=== PATIENT | male | born 1955 | race Caucasian/White ===

== ENCOUNTER 2016-08-13 05:58 | Inpatient (IN) | payer BC ==
[2016-08-10 13:58] LABS: Basophils # (auto) 0 uL; Basophils % (auto) 0.6 % (0.0-2.0); Eosinophils # (auto) 0.3 uL; Eosinophils % (auto) 3.6 % (0.0-7.0); Hematocrit 40.9 % (41.0-53.0); Hemoglobin 13.3 g/dL (13.5-17.5); Lymphocytes # (auto) 1.8 uL; Lymphocytes % (auto) 23.4 % (10.0-50.0); Mean Corpuscular Hgb Conc. 32.4 g/dL (32.0-36.0); Mean Corpuscular Volume 89.4 fL (80.0-100.0); Mean Platelet Volume 10.4 fL (7.4-10.4); Monocytes # (auto) 0.5 uL; Monocytes % (auto) 6.9 % (0.0-12.0); Neutrophils % (auto) 65.5 % (37.0-80.0); Platelet Count (auto) 251 10^3/uL (140-450); Red Cell Distribution Width 15.1 % (11.6-16.0); White Blood Cell 7.6 10^3/uL (4.4-10.8)
[2016-08-10 14:14] LABS: INR 0.93 (0.9-1.15); Partial Thromboplastin Time 26.3 sec (22.64-33.71)
[2016-08-10 14:24] LABS: Albumin 3.4 g/dL (3.4-5.0); BUN/Creatinine Ratio 14.2; Bilirubin, Total 0.4 mg/dL (0.2-1.0); Calcium 9.6 mg/dL (8.5-10.1); Potassium 4.6 mmol/L (3.5-5.1); Total Protein 7.8 g/dL (6.4-8.2); Urine Bilirubin Negative (Negative); Urine Blood TRACE /uL (Negative); Urine Color Yellow (Yellow); Urine Glucose Normal (Normal); Urine Ketone Negative (Negative); Urine Nitrite Negative (Negative); Urine RBC 3 /hpf (0 - 3); Urine Urobilinogen Normal (Negative); Urine pH 5.5 (5.0-8.0)
[~2016-08-13] VITALS: Ht 175.3 cm; Wt 104.4 kg
[~2016-08-13 05:58] MED LIST: AMLO5TAB2 PO; GLIP-115 PO
[2016-08-13] MEDS ORDERED: SUCCINYLCHOLINE CHLORIDE 20 MG/ML 10ML VIAL IV ONE (06:38)
[2016-08-13] MEDS ORDERED: ceFAZolin 1GM/50ML D5W 50 ML IV ONE (06:42)
[2016-08-13] MEDS ORDERED: ONDANSETRON HCL 4 MG/2 ML VIAL ONE (06:45)
[2016-08-13] MEDS ORDERED: MIDAZOLAM HCL 1MG/1ML-2 ML VIAL ONE (06:45)
[2016-08-13] MEDS ORDERED: fentaNYL CITRATE 100 MCG/2 ML VL ONE (06:45)
[2016-08-13] MEDS ORDERED: SODIUM CHLORIDE LOCK 20 ML ONE (06:45)
[2016-08-13] MEDS ORDERED: PROPOFOL 10 MG/ML 20 ML IV ONE (06:46)
[2016-08-13] MEDS ORDERED: IPRATROPIUM BROM 0.5 MG/2.5ML INH SOL NEB ONE (07:15)
[2016-08-13] MEDS ORDERED: ALBUTEROL SULF 2.5 MG/0.5ML(0.5%) NEB SOLN NEB ONE (07:15)
[2016-08-13] MEDS ORDERED: IPRATROPIUM BROM 0.5 MG/2.5ML INH SOL ONE (07:16)
[2016-08-13] MEDS ORDERED: ALBUTEROL MEDNEB 2.5 mg/3ml NEB ONE (07:16)
[2016-08-13] MEDS ORDERED: LIDOCAINE HCL 2 %PF INJ 10ML AMP IJ ONE (08:02)
[2016-08-13] MEDS ORDERED: MEPERIDINE HCL (50 MG/ML) 1 ML VIAL ONE (08:02)
[2016-08-13] MEDS: HYDROmorphone HCL 2 MG/ML VL ONE ×2 (08:42→08:52)
[2016-08-13] MEDS ORDERED: HYDROmorphone HCL 2 MG/ML VL IV PRN (08:45)
[2016-08-13] MEDS ORDERED: METOCLOPRAMIDE HCL 5MG/ml INJ 2ml VIAL IV ONE (08:45)
[2016-08-13] MEDS ORDERED: KETOROLAC TROMETH 30 MG/ML 1ML VIAL IV ONE (08:45)
[2016-08-13] MEDS ORDERED: ACCU-CHEK COMFORT CURVE STRIP VI ONE (08:45)
[2016-08-13] MEDS ORDERED: NITROGLYCERIN 0.4 MG SL TAB SL PRN (09:15)
[2016-08-13] MEDS ORDERED: MORPHINE SULF INJ 2 MG/ML SYRINGE 1ML IV PRN (09:15)
[2016-08-13 10:05] LABS: BUN/Creatinine Ratio 12.6; Calcium 9.2 mg/dL (8.5-10.1); Magnesium 2.1 mg/dL (1.6-2.6); Potassium 5.3 mmol/L (3.5-5.1)
[2016-08-13] MEDS ORDERED: DEXTROSE (50%) 50ML SYRG IV PRN (11:45)
[2016-08-13] MEDS: SODIUM CHLORIDE 0.9% 1,000 ML IV SCH ×2 (11:45→22:24)
[2016-08-13] MEDS: ACCU-CHEK COMFORT CURVE STRIP VI SCH ×3 (12:00→22:24)
[2016-08-13] MEDS ORDERED: amLODIPine BESYLATE 5 MG TAB PO ONE (12:15)
[2016-08-13] MEDS: InsuLIN REG 1unit/0.01ml Soln (100units/ml) SC SCH ×2 (13:30→17:19)
[2016-08-13] MEDS: SODIUM CHLOR 0.9% PF (SALINE LOCK) 10ML VIAL IV SCH ×2 (13:32→22:23)
[2016-08-13] MEDS ORDERED: ASPirin-EC 81 mg tab PO ONE (14:30)
[2016-08-13 17:00] VITALS: BP_SYST 136; BP_SYST 139; BP_DIAS 62; BP_DIAS 76
[2016-08-13 22:00] VITALS: BP 127/79
[2016-08-13] MEDS ORDERED: ATORVASTATIN 20 MG TAB PO SCH (22:00)
[2016-08-13] MEDS ORDERED: InsuLIN REG 1unit/0.01ml Soln (100units/ml) SC SCH (22:00)
[2016-08-13] MEDS: METOPROLOL TARTRATE 25 MG TAB PO SCH ×2 (22:00→22:50)
[2016-08-14] MEDS: SODIUM CHLOR 0.9% PF (SALINE LOCK) 10ML VIAL IV SCH ×2 (04:46→15:10)
[2016-08-14 05:00] VITALS: BP 116/64
[2016-08-14] MEDS: InsuLIN REG 1unit/0.01ml Soln (100units/ml) SC SCH ×3 (06:16→17:00)
[2016-08-14] MEDS: ACCU-CHEK COMFORT CURVE STRIP VI SCH ×3 (06:16→17:00)
[2016-08-14 06:36] LABS: Basophils # (auto) 0 uL; Eosinophils # (auto) 0 uL; Hematocrit 37.5 % (41.0-53.0); Hemoglobin 12.5 g/dL (13.5-17.5); Lymphocytes # (auto) 1.1 uL; Lymphocytes % (auto) 7.5 % (10.0-50.0); Mean Corpuscular Hemoglobin 29.1 pg (28.0-32.0); Mean Corpuscular Hgb Conc. 33.2 g/dL (32.0-36.0); Mean Corpuscular Volume 87.5 fL (80.0-100.0); Mean Platelet Volume 9.4 fL (7.4-10.4); Monocytes # (auto) 0.9 uL; Monocytes % (auto) 5.9 % (0.0-12.0); Neutrophils # (auto) 12.7 uL; Neutrophils % (auto) 86.6 % (37.0-80.0); Platelet Count (auto) 292 10^3/uL (140-450); White Blood Cell 14.6 10^3/uL (4.4-10.8)
[2016-08-14 07:17] LABS: BUN/Creatinine Ratio 14.4; Potassium 4.5 mmol/L (3.5-5.1)
[2016-08-14 08:00] VITALS: BP 150/79
[2016-08-14 09:00] VITALS: BP 150/79
[2016-08-14] MEDS ORDERED: amLODIPine BESYLATE 5 MG TAB PO SCH ×2 (10:00)
[2016-08-14] MEDS ORDERED: ASPirin-EC 81 mg tab PO SCH (10:00)
[2016-08-14 13:00] VITALS: BP 129/85
[2016-08-14] MEDS: SODIUM CHLORIDE 0.9% 1,000 ML IV SCH (15:09)
== END 2016-08-14 18:05 | disposition left against medical advice (07) | DRG 310 ==
LOC: SUR 05:58 → TELE-E-ADS 05:59 → TELE-EAST 12:18
PROVIDERS: ADMIT Urology; ATTEND Urology
PROC: 0TCB8ZZ Extirpation of Matter from Bladder, Via Natural or Artificial Opening Endoscopic (ICD-10-PCS; principal; 2016-08-13 07:35)
DX: I49.3 Ventricular premature depolarization (principal); N21.0 Calculus in bladder; E11.22 Type 2 diabetes mellitus with diabetic chronic kidney disease; I12.9 Hypertensive chronic kidney disease with stage 1 through stage 4 chronic kidney disease, or unspecified chronic kidney disease; J45.909 Unspecified asthma, uncomplicated; E87.5 Hyperkalemia; N13.9 Obstructive and reflux uropathy, unspecified; Z53.21 Procedure and treatment not carried out due to patient leaving prior to being seen by health care provider; N18.3 Chronic kidney disease, stage 3 (moderate); Z80.42 Family history of malignant neoplasm of prostate; Z82.49 Family history of ischemic heart disease and other diseases of the circulatory system; Z79.899 Other long term (current) drug therapy
CPT/HCPCS: 36415; 71010; 80048; 80053; 80061; 81001; 82962; 83036; 83735; 84132; 84484; 85025; 85610; 85730; 87086; 93005; 93306; 94640; J0330; J0690; J1815; J2250; J2405; J2704

== ENCOUNTER → 2019-09-06 | Emergency (ER) | payer BC ==
[~2019-09-06] VITALS: Ht 177.8 cm; Wt 113.4 kg
[~2019-09-06] MED LIST changes: +ALBUTEROL SULF 2.5 MG/0.5ML(0.5%) NEB SOLN NEB ONE; +AMLO5TAB15 PO; -AMLO5TAB2 PO; -GLIP-115 PO; +GLIP5TAB12 PO; +HYDROcodone-ACET 5/325MG TAB PO ONE; +IPRATROPIUM BROM 0.5 MG/2.5ML INH SOL NEB ONE; +cefTRIAXone SOD 1,000 MG VL IM ONE; +traMADol HCL 50 MG TAB PO ONE
[2019-09-06 04:18] LABS: Basophils # (auto) 0 10 ^3/uL (0-0.2); Basophils % (auto) 0.3 % (0.0-2.0); Eosinophils # (auto) 0 10 ^3/uL (0-0.8); Eosinophils % (auto) 0.3 % (0.0-7.0); Hematocrit 47.3 % (41.0-53.0); Hemoglobin 15.4 g/dL (13.5-17.5); Lymphocytes # (auto) 0.8 10 ^3/uL (0.4-5.4); Lymphocytes % (auto) 7.2 % (10.0-50.0); Mean Corpuscular Hemoglobin 29.2 pg (28.0-32.0); Mean Corpuscular Hgb Conc. 32.5 g/dL (32.0-36.0); Mean Corpuscular Volume 89.9 fL (80.0-100.0); Monocytes # (auto) 0.7 10 ^3/uL (0-1.3); Monocytes % (auto) 5.9 % (0.0-12.0); Neutrophils # (auto) 9.7 10 ^3/uL (1.6-8.6); Neutrophils % (auto) 86.3 % (37.0-80.0); Platelet Count (auto) 203 10^3/uL (140-450); Red Blood Cells 5.26 10^6/uL (4.5-5.90); Red Cell Distribution Width 14.5 % (11.8-14.3); White Blood Cell 11.3 10^3/uL (4.4-10.8)
[2019-09-06 04:24] LABS: Potassium 4.4 mmol/L (3.5-5.1)
[2019-09-06 04:27] VITALS: BP 135/72
[2019-09-06 04:33] LABS: Albumin 2.9 g/dL (3.4-5.0); BUN/Creatinine Ratio 11.6; Bilirubin, Total 0.3 mg/dL (0.2-1.0); Calcium 8.4 mg/dL (8.5-10.1)
[2019-09-06 04:45] LABS: INR 0.97 (0.9-1.15)
== END | disposition home or self-care (01) ==
LOC: ER 00:41
DX: L03.114 Cellulitis of left upper limb (principal)
CPT/HCPCS: 36415; 80053; 84550; 85025; 85379; 85610; 93971; 94640; 96372; 99284; J0696; J7644

== ENCOUNTER 2019-09-24 10:26 | Inpatient (IN) | payer BC ==
[~2019-09-24] VITALS: Ht 177.8 cm; Wt 109.3 kg
[~2019-09-24 10:26] MED LIST changes: -ALBUTEROL SULF 2.5 MG/0.5ML(0.5%) NEB SOLN NEB ONE; -HYDROcodone-ACET 5/325MG TAB PO ONE; -IPRATROPIUM BROM 0.5 MG/2.5ML INH SOL NEB ONE; -cefTRIAXone SOD 1,000 MG VL IM ONE; -traMADol HCL 50 MG TAB PO ONE
[2019-09-24] MEDS ORDERED: ACETAMINOPHEN/CODEINE#3 (300/30mg) TAB PO ONE (11:45)
[2019-09-24 12:55] LABS: Basophils # (auto) 0.1 10 ^3/uL (0-0.2); Basophils % (auto) 0.5 % (0.0-2.0); Eosinophils # (auto) 0.2 10 ^3/uL (0-0.8); Eosinophils % (auto) 2.4 % (0.0-7.0); Hematocrit 48.7 % (41.0-53.0); Lymphocytes # (auto) 1.4 10 ^3/uL (0.4-5.4); Lymphocytes % (auto) 14.3 % (10.0-50.0); Mean Corpuscular Hemoglobin 29.6 pg (28.0-32.0); Mean Corpuscular Hgb Conc. 32.8 g/dL (32.0-36.0); Mean Corpuscular Volume 90.4 fL (80.0-100.0); Monocytes # (auto) 0.7 10 ^3/uL (0-1.3); Monocytes % (auto) 6.9 % (0.0-12.0); Neutrophils # (auto) 7.4 10 ^3/uL (1.6-8.6); Neutrophils % (auto) 75.9 % (37.0-80.0); Platelet Count (auto) 276 10^3/uL (140-450); Red Blood Cells 5.39 10^6/uL (4.5-5.90); White Blood Cell 9.7 10^3/uL (4.4-10.8)
[2019-09-24 13:17] LABS: Albumin 3.4 g/dL (3.4-5.0); BUN/Creatinine Ratio 10.5; Calcium 9.3 mg/dL (8.5-10.1); Potassium 4.2 mmol/L (3.5-5.1)
[2019-09-24 13:19] LABS: Bilirubin, Total 0.3 mg/dL (0.2-1.0); Total Protein 8.1 g/dL (6.4-8.2)
[2019-09-24] MEDS ORDERED: ONDANSETRON HCL 4 MG/2 ML VIAL IV PRN (14:15)
[2019-09-24] MEDS ORDERED: MORPHINE SULF INJ 2 MG/ML SYRINGE 1ML IV PRN ×2 (14:15)
[2019-09-24] MEDS ORDERED: DEXTROSE (50%) 50ML SYRG IV PRN (14:15)
[2019-09-24] MEDS ORDERED: NITROGLYCERIN 0.4 MG SL TAB SL PRN (14:15)
[2019-09-24] MEDS ORDERED: HYDROcodone-ACET 7.5/325MG TAB PO PRN (14:15)
[2019-09-24] MEDS: SODIUM CHLORIDE 0.9% 1,000 ML IV SCH (14:54)
[2019-09-24] MEDS: InsuLIN REG 1unit/0.01ml Soln (100units/ml) SC SCH ×2 (17:00→22:00)
[2019-09-24] MEDS: ACCU-CHEK COMFORT CURVE STRIP VI SCH (17:16)
[2019-09-24 17:40] VITALS: BP 138/75
--- NOTE | 2019-09-24 17:40 | NUR ---
MS admit from ER TIFFANIE YUNG admitted to tele/MS after SBAR received. Patient oriented to ALYSSA PARHAM, primary RN, unit, room, bed, and unit policies regarding patient care and visiting hours. Patient weighed by bedscale and encouraged to call if they need something. All questions and concerns addressed, patient verbalized understanding.
[2019-09-24 22:00] VITALS: BP 127/78
[2019-09-25] MEDS: SODIUM CHLORIDE 0.9% 1,000 ML IV SCH (01:47)
[2019-09-25] MEDS: ACCU-CHEK COMFORT CURVE STRIP VI SCH ×5 (01:47→22:00)
[2019-09-25] MEDS ORDERED: GLIP10TA9 PO (03:13)
[2019-09-25] MEDS ORDERED: LOSA-69 PO (03:13)
--- NOTE | 2019-09-25 03:49 | NUR ---
Received report from Sonali Lanza.
[2019-09-25 05:00] VITALS: BP 126/79
[2019-09-25] MEDS: InsuLIN REG 1unit/0.01ml Soln (100units/ml) SC SCH ×4 (06:06→22:00)
--- NOTE | 2019-09-25 08:30 | NUR ---
Ortho at bedside MD Andrade at bedside, aware of patient's status including wrist pain. New orders received for Wrist MRI, states he will input orders and speak to dye lab technician. Will cont care
[2019-09-25 09:00] VITALS: BP 129/75
[2019-09-25] MEDS: amLODIPine BESYLATE 5 MG TAB PO SCH (09:54)
[2019-09-25] MEDS: glipiZIDE 5 MG TAB PO SCH (09:54)
[2019-09-25 13:00] VITALS: BP 138/87
--- NOTE | 2019-09-25 14:01 | NUR ---
Dr. Raymond field spoke to Hung at Dr. Andrade's office and requested call back from Dr. Andrade to notify regarding unable to do MRI and further orders?. Awaiting call back
--- NOTE | 2019-09-25 14:10 | NUR ---
Spoke to MD MD Dhaliwal aware of patient's status including patient request to speak to him. New orders received for Cardio consult for no blood flow to left radial veins. MD aware that patient MRI is unable to be done due to size and recommended ct with contrast. No further orders received. Cont care
--- NOTE | 2019-09-25 16:06 | NUR ---
Patient refused VS. States he does not need to get them done he states "all I need is an MRI that's all". Patient educated on need for VS and cont tx he verbalized understanding but continues to refuse at this time. No distress or sob noted
--- NOTE | 2019-09-25 19:55 | NUR ---
Opening Shift Note Assumed care of patient, AAOx4. No S/S of distress/SOB or pain. On room air and ambulatory. Bed in lowest locked position, side rails up x2, call light within reach. Instructed on POC and to call for assist PRN, will continue to monitor for changes Q1hr and PRN.
[2019-09-25 22:00] VITALS: BP 136/79
--- NOTE | 2019-09-26 06:04 | NUR ---
PATIENT REFUSED VITALS SIGN FOR 0600H, ERIC GARCIA AWARE..
[2019-09-26] MEDS: ACCU-CHEK COMFORT CURVE STRIP VI SCH ×2 (06:31→11:27)
[2019-09-26] MEDS: InsuLIN REG 1unit/0.01ml Soln (100units/ml) SC SCH ×2 (06:31→11:31)
[2019-09-26 08:00] VITALS: BP 129/75
--- NOTE | 2019-09-26 08:00 | NUR ---
ASSESSMENT NOTE PT IS ALERT ORIENTED X4, STANDING AT BED SIDE, STATED I MUST GO HOME TODAY, I DO NOT BELONG HERE> SUPPORT GIVEN TO PT, ASSESS PT LEFT HAND, ONE TO TWO PLUS EDEMA NOTED, WARM AND TENDER TO TOUCH, NO REDNESS NOTED, PT STATED ITS WORSE THAN YESTERDAY, MADE AWARE THAT DR KIM WILL BE HERE AND HAVE HIM TO LOOK AT IT
[2019-09-26 09:00] VITALS: BP_SYST 141; BP_SYST 98; BP_DIAS 48; BP_DIAS 91
[2019-09-26] MEDS: amLODIPine BESYLATE 5 MG TAB PO SCH (09:29)
[2019-09-26] MEDS: glipiZIDE 5 MG TAB PO SCH (09:30)
--- NOTE | 2019-09-26 09:45 | NUR ---
DR KIM AT BED SIDE PT IS ANXIOUS TO GO HOME, DR KIM INFORM PT THAT HE WILL GOING TO CALL DR IYER TO LET HIM KNOW THAT THE MRI WILL BE DONE OUTPATIENT, BECAUSE HE DID NOT FIT IN THE MRI MACHINE, AND ALSO WILL PAGE [employer] DEVELOPER TO DISCUSS THE TYPE OF ANTICOAGULANT APPROPRIATE FOR HER
--- NOTE | 2019-09-26 09:50 | NUR ---
ERICKSON RYAN NP
--- NOTE | 2019-09-26 11:00 | NUR ---
ERICKSON RYAN NP AGAIN
--- NOTE | 2019-09-26 11:50 | NUR ---
DR KIM MADE AWARE THAT SHELBY CALZADA PAGED TWICE, BUT NO RETURN, DR KIM WILL CONTACT DR MALIK DIRECTLY
--- NOTE | 2019-09-26 12:50 | NUR ---
DR MALIK AT BED SIDE ASSESSING PATIENT'S LEFT HAND, SAID ITS POSSIBLE INFLAMMATION, YOU NEED MRI OUT PATIENT SINCE HE DOES NOT FIT IN OUR MRI HERE, NO NEW ORDERS NOTED
[2019-09-26 13:58] VITALS: BP 141/91
--- NOTE | 2019-09-26 14:26 | NUR ---
Discharge instructions given as ordered. Encourage to follow up with PMD as instructed. All questions and concerns addressed. Patient verbalized understanding. Medication reconciliation form completed and copy given to patient. . IV removed with catheter intact, pressure dressing applied, Patient ambulated out to his car with all personal belongings, accompanied by staff . No distress noted at time of departure.
== END 2019-09-26 14:30 | disposition home or self-care (01) | DRG 638 ==
LOC: ER 10:26 → OVERFLOW 10:27 → CENTRAL 17:37
PROVIDERS: ADMIT Nurse Practitioner Acute Care; ATTEND Family Medicine
DX: E11.69 Type 2 diabetes mellitus with other specified complication (principal); L03.114 Cellulitis of left upper limb; I87.1 Compression of vein; I82.629 Acute embolism and thrombosis of deep veins of unspecified upper extremity; J45.909 Unspecified asthma, uncomplicated; I12.9 Hypertensive chronic kidney disease with stage 1 through stage 4 chronic kidney disease, or unspecified chronic kidney disease; N18.3 Chronic kidney disease, stage 3 (moderate); E11.22 Type 2 diabetes mellitus with diabetic chronic kidney disease; E78.5 Hyperlipidemia, unspecified; E66.9 Obesity, unspecified; Z79.84 Long term (current) use of oral hypoglycemic drugs; Z79.899 Other long term (current) drug therapy; Z68.34 Body mass index [BMI] 34.0-34.9, adult; Z79.4 Long term (current) use of insulin
CPT/HCPCS: 36415; 73200; 80053; 82550; 82962; 83036; 85025; 93971; G0378; J1815

== ENCOUNTER 2024-03-29 02:57 | Inpatient (IN) | payer BC, OTHER ==
[2024-03-29] VITALS (9 sets, daily range): BP systolic 137–147; BP diastolic 71–86; PULSE 75–102; RESP 16–20; TEMP 97–97.9; O2SAT 81–97
[~2024-03-29] VITALS: Ht 182.9 cm; Wt 105.5 kg
[~2024-03-29 02:57] MED LIST changes: +AMLO1TAB22 PO; -AMLO5TAB15 PO; +GLIP10TA9 PO; -GLIP5TAB12 PO; +GLIP5TAB21 PO; +LOSA-534 PO
--- NOTE | 2024-03-29 03:03 | ED.PDOC ---
History of Present Illness HPI Comments 68 y/o M, with a Hx of asthma, CKD, DM II, HLD, and HTN and a FMHX of CA and emphysema, is BIBA for left leg weakness and headache, today. Per EMS report, patient endorses intermittent onset of sudden left leg weakness that has caused him to fall multple times since 1600, yesterday. Patient, at time of assessment, admits to also having a mild headache. Patient endorses no recent stress, sick contact, travel, injuries, or substance use/exposure. Patient denies having any chest pain, shortness of breath, chills, or other associated symptoms or modifiers at this time. Patient's vitals were reported to have been stable and within normal limits on scene and en-route prior to arrival. Time Seen by MD: 02:50 Primary Care Provider: JADEN Reviewed Notes: Nurses Notes, Gang Miner Notes, Medications, Allergies Allergies: Coded Allergies: NO KNOWN ALLERGIES (Unverified , 08/10/16) Home Meds Reported Medications Losartan Potassium (Losartan Potassium) 50 Mg Tab, 50 MG PO DAILY for 30 Days, MG 09/25/19 Glipizide (Glipizide) 10 Mg Tab, 10 MG PO BID for 30 Days, MG 09/25/19 Amlodipine Besylate (Amlodipine Besylate) 5 Mg Tab, 5 MG PO DAILY for 30 Days, MG 08/10/16 Glipizide (Glipizide) 5 Mg Tab, 5 MG PO DAILY for 30 Days, MG 08/10/16 Information Source: Patient, Emergency Med Personnel Mode of Arrival: EMS Severity: Moderate Timing: Hours Duration: Intermittent Prehospital treatment: 12 Lead EKG, Manager Mall, None Past Medical History PAST MEDICAL HISTORY: Asthma, CKF, DM, High Lipids, HTN Surgical History: Denies all surgeries Family History Family History: No family hx of DM, No family hx of Heart tano, No family hx of HTN, No family hx ofKidney tano, No family hx of Lung tano, No family hx of Stroke, Family hx of Cancer, Family hx of lung tano (emphysema) Social History Smoker: Non-Smoker Alcohol: Denies ETOH Use Drugs: Denies Drug Use Lives In: Home Constitutional: denies: chills, diaphoresis, fatigue, fever, malaise, sweats, weakness, others EENTM: denies: blurred vision, double vision, ear bleeding, ear discharge, ear drainage, ear pain, ear ringing, eye pain, eye redness, hearing loss, mouth pain, mouth swelling, nasal discharge, nose bleeding, nose congestion, nose divya n, photophobia, tearing, throat pain, throat swelling, voice changes, others Respiratory: denies: cough, hemoptysis, orthopnea, SOB at rest, shortness of breath, SOB with excertion, stridor, wheezing, others Cardiovascular: denies: chest pain, dizzy spells, diaphoresis, Dyspnea on exertion, edema, irregular heart beat, left arm pain, lightheadedness, palpitations, PND, syncope, others Gastrointestinal: denies: abdomen distended, abdominal pain, blood streaked bowels, constipated, diarrhea, dysphagia, difficulty swallowing, hematemesis, melena, nausea, poor appetite, poor fluid intake, rectal bleeding, rectal pain, vomiting, others Genitourinary: denies: burning, dysuria, flank pain, frequency, hematuria, incontinence, penile discharge, penile sore, pain, testicle pain, testicle swelling, urgency, others Neurological: reports: headache, weakness (left leg ); denies: dizziness, fainting, left sided numbness, left sided weakness, numbness, paresthesia, pre- existing deficit, right sided numbness, right sided weakness, seizure, speech problems, tingling, tremors, others Musculoskeletal: denies: back pain, gout, joint pain, joint swelling, muscle pain, muscle stiffness, neck pain, others Integumetry: denies: bruises, change in color, change in hair/nails, dryness, laceration, lesions, lumps, rash, wounds, others Allergic/Immunocompromised: denies: Difficulty Healing, Frequent Infections, Hives, Itching, others Hematologic/Lymphatic: denies: anemia, blood clots, easy bleeding, easy bruising, swollen glands, others Endocrine: denies: excessive hunger, excessive sweating, excessive thirst, excessive urination, flushing, intolerance to cold, intolerance to heat, unexplained weight gain, unexplained weight loss, others Psychiatric: denies: anxiety, bipolar disorder, depression, hopeless, panic disorder, schizophrenia, sleepless, suicidal, others All Other Systems: Reviewed and Negative Physical Exam General Appearance: Moderate Distress HEENT: Normal ENT Inspection, Pharynx Normal, TMs Normal Neck: Full Range of Motion, Non-Tender, Normal, Normal Inspection Respiratory: Chest Non-Tender, Lungs Clear, No Accessory Muscle Use, No Respiratory Distress, Normal Breath Sounds Cardiovascular: No Edema, No JVD, No Murmur, No Gallop, Normal Peripheral Pulses, Regular Rate/Rhythm Breast Exam: Deferred Gastrointestinal: No Organomegaly, Non Tender, No Pulsatile Mass, Normal Bowel Sounds, Soft Genitalia: Deferred Pelvic: Deferred Rectal: Deferred Extremities: No calf tenderness, Normal capillary refill, No pedal edema Musculoskeletal : Apperance: Normal Neurologic: Alert, furnace converter II-XII nml as Tested, No Motor Deficits, Normal Mood, Other (The patient was drifting of the left lower extremity) Cerebellar Function: Unable to Test Reflexes: Normal Skin: Dry, Normal Color, Warm Lymphatic: No Adenopathy Was a procedure done? Was a procedure done?: No EKG EKG : Pulse Rate (adult): 70 [place]: Normal Cardiac Rhythm: NSR Block: None Hypertrophy: None ST: Normal Differential Dx Considerations may include: viral syndrome, electrolyte imbalance, CVA, TIA, musculoskeletal pain X-Ray, Labs, Meds, VS Vital Signs Date Time Temp Pulse Resp B/P (MAP) Pulse Ox O2 Delivery O2 Flow Rate FiO2 03/29/24 05:19 80 12 145/78 (100) 94 03/29/24 03:18 70 03/29/24 03:15 70 03/29/24 03:14 75 16 142/79 (100) 94 03/29/24 03:14 75 16 94 Room Air* 0 21 03/29/24 03:00 98.2 72 16 154/78 (103) 97 Lab Test 03/29/24 04:06 03/29/24 03:11 Range/Units Urine Color Light-yellow Yellow Urine Clarity Clear Clear Urine pH 6.0 5.0-9.0 Urine Specific [place] 1.014 1.001-1.035 Urine Protein 3+ H Negative Urine Ketones Negative Negative Urine Blood 1+ H Negative /uL Urine Nitrite Negative Negative Urine Bilirubin Negative Negative Urine Urobilinogen Normal Negative mg/dL Urine Leukocyte Esterase Negative Negative /uL Urine RBC 4 0 - 3 /hpf Urine WBC 3 0 - 3 /hpf Urine Squamous Epithelial Cells Few <5 /hpf Urine Bacteria None seen None Seen /hpf Urine Mucus Few None Seen Urine Glucose Trace Normal mg/dL Urine Opiates Screen Pending Urine Fentanyl Screen Pending Urine Barbiturates Screen Pending Urine Phencyclidine Screen Pending Urine Amphetamines Screen Pending Urine Benzodiazepines Screen Pending Urine Cocaine Screen Pending Urine Cannabinoids Screen Pending White Blood Count 13.9 H 4.4-10.8 10^3/uL Red Blood Count 5.23 4.5-5.90 10^6/uL Hemoglobin 15.4 13.5-17.5 g/dL Hematocrit 46.0 41.0-53.0 % Mean Corpuscular Volume 88.0 80.0-100.0 fL Mean Corpuscular Hemoglobin 29.4 28.0-32.0 pg Mean Corpuscular Hemoglobin Concent 33.4 32.0-36.0 g/dL Red Cell Distribution Width 15.6 H 11.8-14.3 % Platelet Count 207 140-450 10^3/uL Mean Platelet Volume 9.2 6.9-10.8 fL Neutrophils (%) (Auto) 85.6 H 37.0-80.0 % Lymphocytes (%) (Auto) 7.2 L 10.0-50.0 % Monocytes (%) (Auto) 6.3 0.0-12.0 % Eosinophils (%) (Auto) 0.5 0.0-7.0 % Basophils (%) (Auto) 0.4 0.0-2.0 % Neutrophils # (Auto) 11.9 H 1.6-8.6 10 ^3/uL Lymphocytes # (Auto) 1.0 0.4-5.4 10 ^3/uL Monocytes # (Auto) 0.9 0-1.3 10 ^3/uL Eosinophils # (Auto) 0.1 0-0.8 10 ^3/uL Basophils # (Auto) 0.1 0-0.2 10 ^3/uL Nucleated Red Blood Cells 0.0 % Prothrombin Time 10.4 9.3-11.8 sec Prothrombin Time INR 0.98 0.9-1.15 Activated Partial Thromboplast Time 23.8 L 24.5-34.5 SEC D-Dimer, Quantitative Pending Sodium Level Pending Potassium Level Pending Chloride Level Pending Carbon Dioxide Level Pending Anion Gap Pending Blood Urea Nitrogen Pending Creatinine Pending Glomerular Filtration Rate Calc Pending BUN/Creatinine Ratio Pending Serum Glucose Pending Calcium Level Pending Magnesium Level 2.0 1.6-2.6 mg/dL Total Bilirubin Pending Aspartate Amino Transferase (AST) Pending Alanine Aminotransferase (ALT) Pending Alkaline Phosphatase Pending B-Type Natriuretic Peptide Pending Total Protein Pending Albumin Pending Thyroid Stimulating Hormone (TSH) Pending Current Medications Medications (Trade) Dose Ordered Sig/Asim Route Start Time Stop Time Status Last Admin Aspirin 162 mg ONCE ONCE PO 03/29/24 04:45 03/29/24 04:46 DC 03/29/24 05:09 PROCEDURE(s): HWOCT - HEAD WITHOUT CONTRAST IMPRESSION: 1. Focal wedge-shaped hypodensity seen in the right parafalcine high parietal region with loss of adjacent ames-white matter interface. This may be acute ischemic etiology. Correlation with MRI diffusion weighted is suggested. 2. Focal gliotic area is seen in the right inferior cerebellum. This is most likely sequelae to old ischemic insult. 3. Age-related corticocerebral atrophy. PROCEDURE(s): CXRP - CHEST PORTABLE IMPRESSION: No significant abnormality is seen. We did speak with the neurologist and went over the CT scan as well as the physical exam The telemedicine neurologist was able to evaluate the patient. It was determined that most likely the patient did have a CVA The patient was given aspirin 162 mg by mouth They did order a CT scan angio of the head and neck and the Neurology will make further decisions after this The patient's CBC shows an elevated white blood cell count is 13.9 The urine test is negative The patient was being admitted at this time Images Reviewed?: Images reviewed and evaluated by me Time of 1ST Reevaluation: 03:20 Reevaluation 1ST: Unchanged Patient Education/Counseling: Diagnosis, Treatment, Prognosis Family Education/Counseling: No Family Present Departure 1 Departure Time of Disposition: 05:28 Impression: Primary Impression: CVA (cerebral vascular accident) Qualified Codes: I63.9 - Cerebral infarction, unspecified Disposition: ADMITTED INPATIENT Admit to: Tele Condition: Fair Critical Care Note Critical Care Time?: Yes (35 min-critical care time only) Stability Stability form required: Yes Unstable for transfer: Telemetry monitoring (Telemetry monitoring required), ED Physician Assesment (Clinical assesment) Heart Score Heart Score: Heart Score Response (Comments) Value History N/A 0 EKG N/A 0 Age N/A 0 Risk Factors N/A 0 Troponin N/A 0 Total 0 I personally scribed for ARSH MALIK MD ([email or web address]) on 03/29/24 at 03:03. Electronically submitted by Huseyin Gordon ([email or web address]). I personally scribed for ARSH MALIK MD ([email or web address]) on 03/29/24 at 03:18. Electronically submitted by Huseyin Gordon ([email or web address]). I personally scribed for ARSH MALIK MD ([email or web address]) on 03/29/24 at 04:36. Electronically submitted by Huseyin Gordon ([email or web address]). ARSH MALIK MD Mar 29, 2024 03:03
[2024-03-29 03:26] LABS: Basophils # (auto) 0.1 10 ^3/uL (0-0.2); Basophils % (auto) 0.4 % (0.0-2.0); Eosinophils # (auto) 0.1 10 ^3/uL (0-0.8); Eosinophils % (auto) 0.5 % (0.0-7.0); Hemoglobin 15.4 g/dL (13.5-17.5); Lymphocytes % (auto) 7.2 % (10.0-50.0); Mean Corpuscular Hemoglobin 29.4 pg (28.0-32.0); Mean Corpuscular Hgb Conc. 33.4 g/dL (32.0-36.0); Monocytes # (auto) 0.9 10 ^3/uL (0-1.3); Monocytes % (auto) 6.3 % (0.0-12.0); Neutrophils # (auto) 11.9 10 ^3/uL (1.6-8.6); Neutrophils % (auto) 85.6 % (37.0-80.0); Platelet Count (auto) 207 10^3/uL (140-450); Red Blood Cells 5.23 10^6/uL (4.5-5.90); Red Cell Distribution Width 15.6 % (11.8-14.3); White Blood Cell 13.9 10^3/uL (4.4-10.8)
[2024-03-29 03:34] LABS: Chloride 109 mmol/L (98-107); Potassium 4.7 mmol/L (3.5-5.1); Sodium 141 mmol/L (136-145)
[2024-03-29 03:35] LABS: Anion Gap 8 (5-15); Calcium 10.1 mg/dL (8.7-10.4); Carbon Dioxide 24 mmol/L (20-31)
[2024-03-29 03:40] LABS: Glucose 111 mg/dL (74-106)
[2024-03-29 03:41] LABS: BUN/Creatinine Ratio 9.1 (10.0-20.0); Blood Urea Nitrogen 19 mg/dL (9-23)
--- NOTE | 2024-03-29 04:17 | ECG ---
[facility] Test Date: 2024-03-29 Test Time: 03:15:34 Pat Name: TIFFANIE YUNG Department: ER Room: 0216T Gender: M Ibm Bpm Architect: AKIN : [id number] Requested By: ARSH MALIK Order Number: [id number] Reading MD: Griffin Mcallister Measurements Intervals [place] Rate: 70 P: -14 DC: 227 QRS: 88 QRSD: 100 T: 19 QT: 381 QTc: 412 Interpretive Statements Sinus rhythm Prolonged DC interval Borderline right axis deviation Electronically Signed On 03-30-2024 17:41:25 PST by Griffin Mcallister Please click the below link to view image of tracing.
--- NOTE | 2024-03-29 04:29 | DVH ---
Examination: CXRP CLINICAL INDICATION: weakness COMPARISON: None. TECHNIQUE: Frontal view of chest radiograph. FINDINGS: The lung parenchyma is clear. Hilar and mediastinal shadows show no obvious abnormality. Costophrenic angles clear. Cardiac shadow size is within normal limits. IMPRESSION: No significant abnormality is seen. Electronically Signed 03/29/2024 04:20 Mehnaz Tamayo
--- NOTE | 2024-03-29 04:29 | DVH ---
Examination: HWOCT CLINICAL INDICATION: weakness and headache COMPARISON: None. CONTRAST USED: None. TECHNIQUE: The examination was performed obtaining 5 mm slices without contrast. CT scan done accor ding to ALARA (As Low as Reasonably Achievable). Multiplanar reconstructions were obtained. FINDINGS: SUPRATENTORIAL BRAIN: Cerebral Hemispheres: There is no midline shift or mass effect, intra or extra-axial fluid collectio ns or hemorrhage. Focal wedge-shaped hypodensity seen in the right parafalcine high parietal region with loss of adjace nt ames-white matter interface. Focal gliotic area is seen in the right inferior cerebellum. Periventricular White Matter/Basal Ganglia: No abnormal areas of altered attenuation within the yin ventricular white matter or basal ganglia. POSTERIOR FOSSA: The brainstem is normal and the visualized cerebellar hemispheres are unremarkable. VENTRICULAR SYSTEM: There is mild generalized prominence of the ventricles, cisterns, sulci and sylv christy fissures noted. There is no evidence of hydrocephalus or transependymal flow of cerebrospinal fl uid. SKULL BASE AND PARASELLAR REGION: The skull base is normal with no parasellar masses or abnormalitie s identified. CALVARIUM AND SCALP REGION: No abnormality is seen. PARANASAL SINUSES: No significant inflammatory changes are identified in the paranasal sinuses. IMPRESSION: 1. Focal wedge-shaped hypodensity seen in the right parafalcine high parietal region with loss of ad jacent ames-white matter interface. This may be acute ischemic etiology. Correlation with MRI diff usion weighted is suggested. 2. Focal gliotic area is seen in the right inferior cerebellum. This is most likely sequelae to old ischemic insult. 3. Age-related corticocerebral atrophy. Electronically Signed 03/29/2024 04:19 Mehnaz Tamayo
[2024-03-29 04:34] LABS: Urine Bacteria None Seen /hpf (None Seen)
[2024-03-29 04:50] LABS: Urine Blood 1+ /uL (Negative); Urine Clarity Clear (Clear); Urine Color Light-Yellow (Yellow); Urine Mucus FEW (None Seen); Urine Protein, UAD 3+ (Negative); Urine Specific Gravity 1.014 (1.001-1.035); Urine Urobilinogen Normal (Negative); Urine WBC 3 /hpf (0 - 3)
[2024-03-29 04:59] LABS: INR 0.98 (0.9-1.15); Partial Thromboplastin Time 23.8 SEC (24.5-34.5); Prothrombin Time 10.4 sec (9.3-11.8)
[2024-03-29] MEDS: ASPirin 81 mg TAB PO ONE (05:09)
[2024-03-29] MEDS ORDERED: NITROGLYCERIN 0.4 MG SL TAB SL PRN (05:15)
[2024-03-29] MEDS ORDERED: ENOXAPARIN SOD 40 MG/0.4 ML SYRINGE SC SCH (05:15)
[2024-03-29] MEDS ORDERED: ONDANSETRON HCL 4 MG/2 ML VIAL IV PRN (05:15)
[2024-03-29] MEDS ORDERED: ACETAMINOPHEN 325 MG TAB PO PRN (05:15)
[2024-03-29] MEDS ORDERED: MORPHINE SULFATE INJ 2 MG/ml SYRG IV PRN ×2 (05:15)
[2024-03-29] MEDS: IOHEXOL 350 MG/ML 100ML IJ ONE (05:24)
--- NOTE | 2024-03-29 05:33 | BSKYNEURO ---
[facility] Note # Demographics Consult Type: Acute Stroke Level 2 (4.5-24 hrs) Patient Location: Emergency Room First Name: Eduardo Last Name: Brittany Date of : 1955 Age: 68 Gender: Male Facility: [facility] Time of Initial Page (): 03/29/2024, 04:38 Time of Return Call (): 03/29/2024, 04:38 # HPI History: 68 year old man with the history of hypertension hyperlipidemia and type 2 diabetes and possibly new diagnosis of atrial fibrillation around 4:00 p.m. yesterday developed some left leg weakness, numbness and in coordination # Scores Time of exam and NIHSS (): 03/29/2024, 04:41 Level of Consciousness 1a: [0] = Alert; keenly responsive LOC Questions 1b: [0] = Answers both questions correctly LOC Commands 1c: [0] = Performs both tasks correctly Best Gaze 2: [0] = Normal Visual 3: [0] = No visual loss Facial Palsy 4: [0] = Normal symmetrical movements Motor Arm Left 5a: [1] = Drift Motor Arm Right 5b: [0] = No drift Motor Leg Left 6a: [0] = No drift Motor Leg Right 6b: [0] = No drift Limb Ataxia 7: [1] = Present in one limb Sensory 8: [0] = Normal Best Language 9: [0] = No aphasia Dysarthria 10: [0] = Normal Extinction and Inattention 11: [0] = No abnormality NIHSS Total: 2 # PMH-FH-SH Past Medical History: - hypertension - hyperlipidemia - Diabetes Social History: - non-smoker - non-drinker - no drugs Medications: - antihypertensive - lipid lowering agent Allergies: - NKDA # Data Time Head CT personally read by me (): 03/29/2024, 05:[address]: - no bleed right parietal hypodensity # Assessment Impression: Suspect acute CVA- high right parietal region # Plan Thrombolytic/Intervention: NOT IV Thrombolysis or IA Intervention candidate Thrombolytic Exclusion: > 4.5 hours Target Blood Pressure: SBP 120-220 for 3-5 days Labs: - lipid panel - hemoglobin A1c - TSH Imaging: (urgency: STAT): - CT Angiogram Head and CT Angiogram Neck AND call back with results if abnormal Imaging: (urgency: routine): - MRI Brain without contrast Diagnostic Test: - echo with bubble study Therapy/Evaluation: - speech/swallow consultation - PT/OT evaluation Medication: - aspirin 81 mg PLUS clopidogrel (Plavix) 75 mg for 21 days, then monotherapy therafter - start statin with goal of LDL < 70 Other: - If patient has any neurological deterioration please call back immediately - I have discussed my recommendations with the referring provider - permissive hypertension Disposition: admit # Demographics First Name: Eduardo Last Name: [facility] Facility: [facility] Yes KENDALL LAUGHLIN Jr., MD Mar 29, 2024 05:33
[2024-03-29] MEDS: CLOPIDOGREL BISULFATE 75 MG TAB PO ONE (05:41)
[2024-03-29 05:42] LABS: Amphetamine Screen, Urine Neg (NEGATIVE); Barbiturate Scree,Urine Neg (NEGATIVE); Benzodiazephine Screen, Urine Neg (NEGATIVE); Cocaine Screen, Urine Neg (NEGATIVE)
[2024-03-29 05:43] LABS: Cannabinoid Screen, Urine Neg (NEGATIVE); Opiate Scree,Urine Neg (NEGATIVE); Phencyclidine Screen, Urine Neg (NEGATIVE)
[2024-03-29 05:44] LABS: Alanine Aminotransferase 24 U/L (7-40); Albumin 4.2 g/dL (3.2-4.8); Alkaline Phosphatase 88 U/L (46-116); Anion Gap 9 (5-15); Aspartate Aminotransferase 28 U/L (13-40); BUN/Creatinine Ratio 10.8 (10.0-20.0); Blood Urea Nitrogen 23 mg/dL (9-23); Calcium 10.2 mg/dL (8.7-10.4); Carbon Dioxide 24 mmol/L (20-31); Chloride 108 mmol/L (98-107); Glucose 111 mg/dL (74-106); Potassium 4.9 mmol/L (3.5-5.1); Sodium 141 mmol/L (136-145)
[2024-03-29 05:45] LABS: Bilirubin, Total 0.4 mg/dL (0.2-1.0); Total Protein 6.2 g/dL (5.7-8.2)
--- NOTE | 2024-03-29 05:57 | DVH ---
Procedure: CT ANGIO HEAD/Neck HISTORY: Possible CVA Comparison Study: CT scan of the head performed same date. Exam Date:03/29/2024 05:24 AM TECHNIQUE: CTA head without and with intravenous contrast. CTA neck with intravenous contrast. 3D gris W-locate postprocessing was performed and images were used for interpretation and reporting. Radiation Dose : CT Dose: CTDI volume is 68.5 mGy. Dose-length product is 1346.9 mGy*cm FINDINGS: CTA head: There is normal enhancement of the visualized internal carotid, anterior and middle cerebral arterie s. There are bilateral posterior communicating arteries. The vertebral, basilar, and posterior cere bral arteries are within normal limits. The visualized intracranial venous structures are better constance luated on CT scan of the head same date. CTA neck: The visualized thoracic aortic arch and proximal great vessels are unremarkable. The left common, int ernal and external carotid arteries are patent. Mild atherosclerotic calcifications in the left carot id bifurcation. The right common, internal and external carotid arteries are within normal limits. Th e cervical segments of the right and left vertebral arteries are within normal limits. The limited vi sualized lung apices are clear. The surrounding soft tissues and osseous structures are otherwise unr emarkable. The lung apices are clear. Thyroid unremarkable. IMPRESSION: 1. No evidence of significant intracranial stenosis, proximal occlusion or aneurysm. 2. No evidence of hemodynamically significant cervical stenosis or dissection. CAROTID STENOSIS REFERENCE Distal internal carotid artery diameter as the denominator for stenosis measurement: MILD = <50% stenosis. MODERATE = 50-69% stenosis. SEVERE = 70-89% stenosis. CRITICAL = 90-99% stenosis. OCCLUDED = 100% stenosis. All CT scans at this medical facility are performed using dose modulation techniques as appropriate t o a performed exam including the following: Automated exposure control was utilized; adjustment of th e MA and/or KV according to patient size; and use of iterative reconstruction technique.
[2024-03-29] MEDS: ATORVASTATIN 20 MG TAB PO ONE (06:39)
[2024-03-29 06:45] LABS: Triglycerides 228 mg/dL (< 150)
[2024-03-29 06:46] LABS: LDL Cholesterol 88 mg/dL (< 100)
[2024-03-29 06:47] LABS: Cholesterol 166 mg/dL (< 200); HDL Cholesterol 45 mg/dL (40-59)
--- NOTE | 2024-03-29 06:51 | DVHHPRES ---
History of Present Illness Resident Creating Document: ROXANA LARA Reason for Visit: Bilateral lower extremity weakness History of Present Illness 68-year-old male patient with past medical history of type 2 diabetes, hypertension, hyperlipidemia and chronic kidney disease who presented with complaints of bilateral lower extremity weakness and wobbling sensation that began after gardening. The symptoms started yesterday at approximately 4:00 p.m. after the onset of symptoms the patient took a nap but upon walking and attempting to use the bathroom he experienced a fall. He denies loss of consciousness during the event paramedics were called, and he was brought to the hospital he reports normal strength in right lower extremity and mild numbness in the left foot, but no loss of sensation or paralysis. He denies any preceding chest pain, palpitations, dizziness or visual changes. The patient mentions a prior diagnosis of a "leaking valve" by Dr. Caputo , newly diagnosed atrial fibrillation that was shown in the monitor worker. Current vital signs showed mildly elevated blood pressure 145/78 that we will keep because of the permissive hypertension in this scenario. Initial imaging included a CT of the head, which revealed a focal wedge-shaped hypodensity in the right parietal region with loss of the adjacent mtz-white matter interface, suggestive of an acute ischemic etiology. The patient has been on aspirin, clopidogrel and atorvastatin. No significant neurological deficits were noted except for the reported numbness in the left foot. The pain denies fever recent infection, chest pain, shortness of breaths or other systemic symptoms. Past Medical History Two diabetes Hypertension Hyperlipidemia Chronic kidney disease Atrial fibrillation Past Surgical History: None Family History: None Smoke: No ALCOHOL: none Drugs: None Domestic Violence: Neg Review of Systems Review of Systems Constitutional: No: Fever, Chills, Sweats, Weakness, Malaise, Other Eyes: No: Pain, Vision change, Conjunctivae inflammation, Eyelid inflammation, Other, Redness ENT: No: Ear pain, Ear discharge, Nose pain, Nose discharge, Nose congestion, Mouth pain, Mouth swelling, Throat pain, Throat swelling, Other Respiratory: Cough presen No: Wheezing, Hemoptysis, Pleuritic Pain, Sputum, Wheezing, Other Cardiovascular: No: Chest Pain, Palpitations, Orthopnea, Paroxysmal Noc. Dyspnea, Edema, Lt Headedness, Other Gastrointestinal: No: Nausea, Vomiting, Abdominal Pain, Diarrhea, Constipation, Melena, Hematochezia, Other Musculoskeletal: Yes: Bilateral lower extremity weakness No: other, neck pain, shoulder pain, arm pain, back pain, hand pain, leg pain, foot pain Neurological:No: Weakness, Numbness, Incoordination, Change in speech, Confusion, Seizures Allergies: Coded Allergies: NO KNOWN ALLERGIES (Unverified , 08/10/16) Medications Current Medications Medications Dose Ordered Sig/Asim Route Start Time Stop Time Status Last Admin Dose Admin Ondansetron HCl 4 mg Q4HP PRN IV 03/29/24 05:15 Acetaminophen 650 mg Q6HP PRN PO 03/29/24 05:15 Morphine Sulfate 2 mg Q4HPRN PRN IV 03/29/24 05:15 Nitroglycerin 0.4 mg Q5MINP PRN SL 03/29/24 05:15 Morphine Sulfate 2 mg Q30M PRN IV 03/29/24 05:15 Clopidogrel Bisulfate 75 mg DAILY PO 03/30/24 10:00 Atorvastatin Calcium 80 mg DAILY PO 03/30/24 10:00 Exam Vital Signs Vital Signs Date Time Temp Pulse Resp B/P (MAP) Pulse Ox O2 Delivery O2 Flow Rate FiO2 03/29/24 05:19 80 12 145/78 (100) 94 03/29/24 03:14 Room Air* 0 21 03/29/24 03:00 98.2 Exam Examination General Appearance: Alert, Oriented X3, Cooperative, No acute distress HEENT: EOMI Respiratory: Clear to auscultation, Normal air movement Cardiovascular: Regular rate, Normal S1, Normal S2 Abdominal: Normal bowel sounds Extremities: 5 4/5 strength bilaterally in upper and lower extremity, except for a slight decrease in coordination of the left foot, sensation is decreased to light touch in the left foot Skin: No rashes, No breakdown Neuro: Normal gait, Normal speech, Strength at 5/5 X4 ext, Normal tone, Sensation intact, Cranial nerves 3-12 NL, Reflexes 2+ Psych/Mental Status: Mental status NL, Mood NL Labs/Xrays Labs Test 03/29/24 04:06 03/29/24 03:11 Range/Units Urine Color Light-yellow Yellow Urine Clarity Clear Clear Urine pH 6.0 5.0-9.0 Urine Specific [place] 1.014 1.001-1.035 Urine Protein 3+ H Negative Urine Ketones Negative Negative Urine Blood 1+ H Negative /uL Urine Nitrite Negative Negative Urine Bilirubin Negative Negative Urine Urobilinogen Normal Negative mg/dL Urine Leukocyte Esterase Negative Negative /uL Urine RBC 4 0 - 3 /hpf Urine WBC 3 0 - 3 /hpf Urine Squamous Epithelial Cells Few <5 /hpf Urine Bacteria None seen None Seen /hpf Urine Mucus Few None Seen Urine Glucose Trace Normal mg/dL Urine Opiates Screen Neg NEGATIVE Urine Fentanyl Screen Neg NEGATIVE Urine Barbiturates Screen Neg NEGATIVE Urine Phencyclidine Screen Neg NEGATIVE Urine Amphetamines Screen Neg NEGATIVE Urine Benzodiazepines Screen Neg NEGATIVE Urine Cocaine Screen Neg NEGATIVE Urine Cannabinoids Screen Neg NEGATIVE White Blood Count 13.9 H 4.4-10.8 10^3/uL Red Blood Count 5.23 4.5-5.90 10^6/uL Hemoglobin 15.4 13.5-17.5 g/dL Hematocrit 46.0 41.0-53.0 % Mean Corpuscular Volume 88.0 80.0-100.0 fL Mean Corpuscular Hemoglobin 29.4 28.0-32.0 pg Mean Corpuscular Hemoglobin Concent 33.4 32.0-36.0 g/dL Red Cell Distribution Width 15.6 H 11.8-14.3 % Platelet Count 207 140-450 10^3/uL Mean Platelet Volume 9.2 6.9-10.8 fL Neutrophils (%) (Auto) 85.6 H 37.0-80.0 % Lymphocytes (%) (Auto) 7.2 L 10.0-50.0 % Monocytes (%) (Auto) 6.3 0.0-12.0 % Eosinophils (%) (Auto) 0.5 0.0-7.0 % Basophils (%) (Auto) 0.4 0.0-2.0 % Neutrophils # (Auto) 11.9 H 1.6-8.6 10 ^3/uL Lymphocytes # (Auto) 1.0 0.4-5.4 10 ^3/uL Monocytes # (Auto) 0.9 0-1.3 10 ^3/uL Eosinophils # (Auto) 0.1 0-0.8 10 ^3/uL Basophils # (Auto) 0.1 0-0.2 10 ^3/uL Nucleated Red Blood Cells 0.0 % Prothrombin Time 10.4 9.3-11.8 sec Prothrombin Time INR 0.98 0.9-1.15 Activated Partial Thromboplast Time 23.8 L 24.5-34.5 SEC D-Dimer, Quantitative 1.59 H 0.0-0.49 mg/L FEU Sodium Level 141 136-145 mmol/L Potassium Level 4.9 3.5-5.1 mmol/L Chloride Level 108 H 98-107 mmol/L Carbon Dioxide Level 24 20-31 mmol/L Anion Gap 9 5-15 Blood Urea Nitrogen 23 9-23 mg/dL Creatinine 2.12 H 0.700-1.30 mg/dL Glomerular Filtration Rate Calc 33 >90 mL/min BUN/Creatinine Ratio 10.8 10.0-20.0 Serum Glucose 111 H 74-106 mg/dL Calcium Level 10.2 8.7-10.4 mg/dL Magnesium Level 2.0 1.6-2.6 mg/dL Total Bilirubin 0.4 0.2-1.0 mg/dL Aspartate Amino Transferase (AST) 28 13-40 U/L Alanine Aminotransferase (ALT) 24 7-40 U/L Alkaline Phosphatase 88 46-116 U/L B-Type Natriuretic Peptide 44.10 0-100 pg/mL Total Protein 6.2 5.7-8.2 g/dL Albumin 4.2 3.2-4.8 g/dL Assessment/Plan Assessment/Plan #Acute ischemic parietal lobe stroke based on CT scan ? Cardioembolic - maintain permissive hypertension to preserved cerebral perfusion. Target blood pressure less than 180/ 105 mmHg -Initially the stroke protocol with MRI of the brain (noncontrast) for further characterization of ischemic changes. -Carotid Doppler ultrasound to evaluate for stenosis. -Radiology consultation further management -Clopidogrel 75 mg -Aspirin p.o. -Atorvastatin p.o. #New onset atrial fibrillation -consider initiate anticoagulation with apixaban -echocardiogram to assess valvular function and left atrial thrombus. #Type 2 diabetes -Check hemoglobin A1c to assess glycemic control #Dyslipidemia -Continue atorvastatin -Lipid panel #Chronic kidney disease -monitor #Hypertension -maintain permissive hypertension to preserve cerebral perfusion Case discussed with Dr. Nails Goals of care discussed with the patient for 45 minutes Code status full code Plan discussed with: Patient My Orders Orders - ROXANA LARA RESIDENT Procedure Category Date Status Time Admit ADMIT 03/29/24 Transmitted 05:06 Allergies NEMESIO 03/29/24 In Process 05:06 Code Status CODE 03/29/24 Transmitted 05:06 Oxygen Per Hour RT 03/29/24 Transmitted 05:06 Ondansetron Hcl PHA 03/29/24 In Process (Zofran) 05:15 Complete Blood Count LAB 03/30/24 Verified 04:00 Comprehensive LAB 03/30/24 Verified Metabolic Panel 04:00 Npo (Nothing By DIET 03/29/24 Transmitted Mouth) Diet Breakfast Echo 2d Mode Cardiac US 03/29/24 Logged DOP 05:06 Carotid Duplx W Color US 03/29/24 Logged DOP 05:06 Acetaminophen Tablet PHA 03/29/24 In Process (Tylenol Tablet) 05:15 Maintain Bed Rest NEMESIO 03/29/24 In Process 05:06 Morphine Sulfate PHA 03/29/24 In Process Injection 05:15 Nitroglycerin [facility] 03/29/24 In Process Sublingual (Ntrostat 05:15 Morphine Sulfate PHA 03/29/24 In Process Injection 05:15 Oxygen By Nasal RT 03/29/24 Transmitted Cannula 05:06 Stat Ekg For Chest [facility] 03/29/24 In Process Pain 05:06 Notify Of Changes [facility] 03/29/24 In Process From Base 05:06 Fish Culturist For [facility] 03/29/24 In Process 24 Hours 05:06 Emergency Dysrhythmia [facility] 03/29/24 In Process Protocol 05:06 Rhythm Strips Once [facility] 03/29/24 In Process Every Shift 05:06 Clopidogrel Bisulfate [facility] 03/30/24 In Process (Plavix) 10:00 Lipid Panel LAB 03/29/24 In Process 06:00 Thyroid Stimulating LAB 03/29/24 In Process Hormone 06:00 Hemoglobin A1c LAB 03/29/24 In Process 06:00 Brain Head Wo Contrast MRI 03/29/24 Logged 06:07 Pt Request For Service PT 03/29/24 Logged 06:07 * Swallow Request ST 03/29/24 Transmitted 06:09 Date of Service: Mar 28, 2024 Billing Provider: BILL NAILS MD Common Visit Codes: [id number] INP/OBS CARE (HIGH) Secondary Visit Codes: [id number] CARE PLAN 30 MINUTES ROXANA LARA RESIDENT Mar 29, 2024 06:51 BILL NAILS MD Mar 29, 2024 19:08
--- NOTE | 2024-03-29 09:05 | DVH ---
EXAMINATION: MRI BRAIN HEAD WO CONTRAST INDICATION: acute stroke COMPARISON: CT HEAD WITHOUT CONTRAST on DOS: 03/29/24 TECHNIQUE: Multiplanar, multisequence magnetic resonance imaging of the brain was performed without the use of i ntravenous contrast. FINDINGS: There are multiple foci of restricted diffusion in the right parafalcine frontal lobe and right parie miguel lobe, corpus callosum consistent with acute infarcts. No intracranial hemorrhage. No mass effect . Generalized volume loss. There is periventricular/deep white matter T2/FLAIR hyperintensity is nonspecific, but most commonly associated with chronic microvascular disease. Mild generalized volume loss. The ventricles and sulci are normal in size for age. Clear basal cisterns. Flow voids in the major intracranial vessels are maintained. No abnormality of the orbits. Paranasal sinuses and mastoid air cells are clear. No abnormality of the visualized osseous structures and extracranial soft tissues. IMPRESSION: 1. Acute infarct in the right parietal and right frontal lobe as well as corpus callosum. 2. Mild generalized volume loss and sequelae of chronic microvascular ischemic changes.
--- NOTE | 2024-03-29 09:51 | DVHPNRES ---
Progress Note Date Seen: Mar 29, 2024 Resident Creating Document: ANA PAULA CROOKSRADHA RESIDENT Medical Necessity Reason Pt with a Central, PICC or Fol: No Subjective Review of Systems Patient is a 68-year-old with a past medical history of type 2 diabetes mellitus, CKD stage 3, hypertension was brought to the ER by the emergency medical services for the history of fall around for 4:00 p.m. in the evening. Patient was apparently well and was gardening and around 4 in the evening he suddenly felt dizzy and weak in his legs and fell down. Patient denies loss of consciousness and reports that he got up and went to take a nap. After 2 3 hours he woke up and went to the kitchen where he felt the similar sensation of dizziness and fell down again following which he called 911. Patient denied chest pain, shortness of breath, palpitations. Head CT without contrast showed focal wedge-shaped hypodensity in the right high parietal region with loss of adjacent mtz-white matter interface, focal aortic area seen in the right inferior cerebellum and likely sequela to old ischemic insult. Brain MRI without contrast showed acute infarct in the right parietal in the right frontal lobe as well as corpus callosum. Labs revealed elevated WBC count with left shift, elevated creatinine, lipid panel shows triglyceride elevation, hemoglobin A1c is at 6.5%. Past medical history: As per HPI Past surgical history: none reported Social history: Patient denies smoking, alcohol, drug use. History of alcohol use untill 10 years ago. Family history: Not significant Review of systems Patient seen and examined with the bedside. Patient is alert and oriented to time, place and person. GCS 15. Patient reported feeling slightly dizzy and weak in bed. Tele-monitor shows regular rhythm. Patient was afebrile and BP trends in 140s/70s mmHg, SpO2 97% on 2 L per oxygen. Patient denied chest pain, palpitation, nausea, vomiting. Patient denied dysuria, abdominal pain. Patient denied visual abnormality, hearing abnormality Objective vital signs Vital Sign Date Time Temp Pulse Resp B/P (MAP) Pulse Ox O2 Delivery O2 Flow Rate FiO2 03/29/24 09:47 97.9 79 20 145/83 (103) 97 97.9 03/29/24 07:50 Nasal Cannula* 2 28 medications Current Medications Medications Dose Ordered Sig/Asim Route Start Time Stop Time Status Last Admin Dose Admin Ondansetron HCl 4 mg Q4HP PRN IV 03/29/24 05:15 Acetaminophen 650 mg Q6HP PRN PO 03/29/24 05:15 Morphine Sulfate 2 mg Q4HPRN PRN IV 03/29/24 05:15 Nitroglycerin 0.4 mg Q5MINP PRN SL 03/29/24 05:15 Morphine Sulfate 2 mg Q30M PRN IV 03/29/24 05:15 Clopidogrel Bisulfate 75 mg DAILY PO 03/30/24 10:00 Atorvastatin Calcium 80 mg DAILY PO 03/30/24 10:00 Examination Physical Examination Gen - no pallor, no icterus, no cyanosis, no clubbing, no LAD, no edema . Skin - Patients skin is warm and dry. Patient has multiple abrasions on his arms and legs which she reported that when he fell in the garden where he scratched against some plants. HEENT - normocephalic, atraumatic, mildly dry mucous membranes. Neck - full ROM, no LAD, no JVD Pulmonary - B/L vesicular breath sounds. no crackles , no wheezing, no stridor. cardiovascular - normal S1,S2 heard. no murmurs heard. peripheral pulses normal radial 2+, pedal 2+. capillary refill normal <2 secs. GI - soft abdomen without tenderness to palpation. no hepatospleenomegaly. Bowel sounds+ Neurological - Patient is A/O X 3. Bilateral upper extremity strength 5/5, left lower extremity strength 4/5, right lower extremity strength 5/5, no facial droop, normal speech, no tremor, no sensory deficiets, normal extraocular movements, normal visual acuity, normal facial sensation and jaw muscle strength, normal 7th nerve examination, no hearing deficit, no vertigo, normal 12th cranial nerve examination, shoulder shrugging normal, normal cranial of 9 and examination. laboratory and microbiology Laboratory Tests 03/29/24 03:11 Test 03/29/24 03:11 Range/Units Serum Glucose 111 H 74-106 mg/dL Problem List/Assessment/Plan Problem List/Assessment/Plan Assessment and plan # acute ischemic stroke in the right parietal in the right frontal lobe - Head CT without contrast showed focal wedge-shaped hypodensity in the right high parietal region with loss of adjacent mtz-white matter interface, focal aortic area seen in the right inferior cerebellum and likely sequela to old ischemic insult. -Brain MRI without contrast showed acute infarct in the right parietal in the right frontal lobe as well as corpus callosum. - maintain permissive hypertension - aspirin 162 mg and Plavix 75 mg - atorvastatin 80 mg - CT angio head and neck no evidence of significant intracranial stenosis, paroxysmal occlusion or aneurysm, no evidence of hemodynamically significant cervical stenosis or dissection. - carotid Doppler showed no hemodynamically significant stenosis in the right of the left internal carotid system. - physical therapy evaluation # ? New onset atrial fibrillation - admitting team reported 1 episode of atrial fibrillation on tele monitor - no further AFib events noted on the tele - patient continues to be on tele - echocardiogram pending - patient was on aspirin and Plavix, we will consider anticoagulation # type 2 diabetes mellitus - HbA1c 6.5% - patient on mild insulin sliding scale # DANG on CKD stage III likely hemodynamically mediated - serum creatinine elevated at 2.08 - GFR in the 30s - patient given 1 L NS at 60 mL/hour # hypertriglyceridemia - patient on atorvastatin 80 mg # Vitamin B12 deficiency - replenished Goals of care discussed with the patient for over 30 minutes. Full code Plan discussed with Dr. Johnson Plan discussed with: Patient Date of Service: Mar 29, 2024 Billing Provider: SANDRA ALVAREZ MD Common Visit Codes: [id number] INP/OBS CARE(HIGH) ARNALDO CROOKS RESIDENT Mar 29, 2024 09:51 SANDRA ALVAREZ MD Mar 30, 2024 09:09
[2024-03-29] MEDS ORDERED: DUPI300I SC (10:21)
[2024-03-29] MEDS ORDERED: INSUINJ37 SC (10:21)
[2024-03-29] MEDS ORDERED: LOSA-535 PO (10:21)
[2024-03-29] MEDS ORDERED: DULA0.5I SC (10:21)
[2024-03-29] MEDS ORDERED: PRAV20TA3 PO (10:21)
[2024-03-29] MEDS ORDERED: DILT-29 PO (10:23)
[2024-03-29] MEDS ORDERED: CHOL20007 PO (10:24)
[2024-03-29] MEDS ORDERED: DEXTROSE (50%) 50ML SYRG IV PRN (11:30)
[2024-03-29] MEDS: InsuLIN REG 1unit/0.01ml Soln (100units/ml) SC SCH (11:54)
[2024-03-29] MEDS: ACCU-CHEK COMFORT CURVE STRIP VI SCH (11:58)
--- NOTE | 2024-03-29 12:09 | DVH ---
Bilateral lower extremity venous duplex Clinical History: elevated ddimer Comparison: None Technique: Duplex Doppler evaluation of the deep venous systems of both lower extremities from the common femora l veins to the popliteal veins including color Doppler and spectral/pulsed waveform analysis was perf ormed. Findings: RIGHT SIDE: The common femoral vein demonstrates appropriate compressibility and waveform variability. There is compressibility/patency of the great saphenous vein at the proximal thigh. The femoral vein demonstrates appropriate compressibility and waveform variability. The deep femoral vein demonstrates appropriate compressibility and waveform variability. The popliteal vein demonstrates appropriate compressibility and waveform variability. There is normal compressibility at the tibioperoneal trunk. Right popliteal fossa avascular cystic structure measuring 5.0 x 2.2 x 1.9 cm. LEFT SIDE: The common femoral vein demonstrates appropriate compressibility and waveform variability. There is compressibility/patency of the great saphenous vein at the proximal thigh. The femoral vein demonstrates appropriate compressibility and waveform variability. The deep femoral vein demonstrates appropriate compressibility and waveform variability. The popliteal vein demonstrates appropriate compressibility and waveform variability. There is normal compressibility at the tibioperoneal trunk. Impression: 1. No right or left femoropopliteal venous thrombosis. 2. Right popliteal fossa Paul's cyst measuring up to 5.0 cm. HS:Y
--- NOTE | 2024-03-29 12:11 | DVH ---
Carotid Duplex Date: 03/29/2024 10:58 AM Clinical History: r/o carotis stenosis Comparison: None Technique: Duplex Doppler evaluation of the extracranial carotid and vertebral arteries including color Doppler and spectral/pulsed waveform analysis was performed. Findings: RIGHT SIDE: The peak systolic velocities are 77 cm/s in the distal CCA and 73 cm/s in the proximal ICA.The ICA/CC A ratio is normal. The external carotid artery is patent with peak systolic velocity of 117 cm/s proximally. There is appropriate antegrade flow in the right vertebral artery. LEFT SIDE: Small heterogenous plaque at the left carotid bulb and proximal left ICA causing less than 50% stenos is by grayscale measurement. The peak systolic velocities are 84 cm/s in the distal CCA and 82 cm/s in the proximal ICA.. The ICA /CCA ratio is normal. The external carotid artery is patent with peak systolic velocity of 180 cm/s proximally. There is appropriate antegrade flow in the left vertebral artery. IMPRESSION: 1. No hemodynamically significant stenosis noted in the right carotid system. 2. Elevated left external carotid artery velocity. No hemodynamically significant stenosis noted in t he left internal carotid system. 3. Reference: Radiology 2003; [id number] HS:Y
[2024-03-29] MEDS: SODIUM CHLORIDE 0.9% 1,000 ML IV ONE (20:00)
[2024-03-29] MEDS: CYANOCOBALAMIN (B-12) 1000 MCG/1 ML VIAL IM ONE (20:46)
[2024-03-30] VITALS (7 sets, daily range): BP systolic 123–152; BP diastolic 70–88; PULSE 77–89; RESP 17–19; TEMP 97–98; O2SAT 90–99
[2024-03-30 05:41] LABS: Basophils # (auto) 0 10 ^3/uL (0-0.2); Basophils % (auto) 0.5 % (0.0-2.0); Eosinophils # (auto) 0.3 10 ^3/uL (0-0.8); Eosinophils % (auto) 3.8 % (0.0-7.0); Lymphocytes # (auto) 1.5 10 ^3/uL (0.4-5.4); Lymphocytes % (auto) 18.3 % (10.0-50.0); Mean Corpuscular Hgb Conc. 34.3 g/dL (32.0-36.0); Mean Corpuscular Volume 87.5 fL (80.0-100.0); Monocytes # (auto) 0.6 10 ^3/uL (0-1.3); Monocytes % (auto) 7.9 % (0.0-12.0); Neutrophils # (auto) 5.6 10 ^3/uL (1.6-8.6); Neutrophils % (auto) 69.5 % (37.0-80.0); Platelet Count (auto) 172 10^3/uL (140-450); Red Blood Cells 4.69 10^6/uL (4.5-5.90); Red Cell Distribution Width 15.3 % (11.8-14.3)
[2024-03-30 06:05] LABS: Alanine Aminotransferase 18 U/L (7-40); Albumin 3.7 g/dL (3.2-4.8); Alkaline Phosphatase 69 U/L (46-116); Anion Gap 7 (5-15); Aspartate Aminotransferase 30 U/L (13-40); Blood Urea Nitrogen 20 mg/dL (9-23); Calcium 9.4 mg/dL (8.7-10.4); Carbon Dioxide 25 mmol/L (20-31); Chloride 107 mmol/L (98-107); Glucose 89 mg/dL (74-106); Potassium 4.4 mmol/L (3.5-5.1); Sodium 139 mmol/L (136-145)
[2024-03-30 06:06] LABS: Bilirubin, Total 0.7 mg/dL (0.2-1.0); Total Protein 5.7 g/dL (5.7-8.2)
--- NOTE | 2024-03-30 09:50 | DVHSR ---
APPROVED REPORT EXAM: Two-dimensional and M-mode echocardiogram with Doppler and color Doppler. Blood Pressure: 145/78 mmHg INDICATION R/O Cardiogenic Stroke RISK FACTORS Height: 6', Weight: 220 DIMENSIONS LVDd4.4 (3.8-5.7cm)LA (2D)4.0 (1.9-4.0cm)Aortic Root4.3 (2.0-3.7cm) LVDs2.9 (2.5-4.0cm)LA (MM) (1.9-4.0cm)Aortic Cusp Exc1.9 (1.5-2.0cm) EF (%) 63.0 (55-70%)Rt. Atrium4.0 (1.9-4.0cm)Asc. Aorta cm IVSd1.4 (0.7-1.1cm)RV (D) (1.8-2.4cm) PWd1.3 (0.7-1.1cm) Mitral Valve MitralMitral Stenosis E wave0.70m/sMV Mean GR.mmHg A wave0.90m/sMV Peak GR.mmHg E/A ratio0.82D MVAcm2 Aortic Valve Aortic ValveAortic Stenosis V10.90m/Sabra Mean GR.3mmHg V21.10m/Sabra Peak GR.5mmHg LVOT Diameter2.5 (1.8-2.4cm)Doppler AVA4.01cm2 AI P 1/2 [id number] Pulmonic Valve V20.70m/s Conclusion Normal left ventricular size and dimension. Normal left ventricular systolic function estimated ejec tion fraction 55%. There is a grade 1 diastolic dysfunction. Normal right ventricular size and dimension. Normal right ventricular systolic function. Normal biatrial size and dimension. Normal aortic valve structure and function. There is mild aortic regurgitation Normal mitral valve structure and function. Normal tricuspid valve structure and function. The pulmonary valve is grossly normal. No pericardial effusion.
[2024-03-30] MEDS: ASPirin 81 mg TAB PO SCH (10:00)
[2024-03-30] MEDS: CLOPIDOGREL BISULFATE 75 MG TAB PO SCH (10:00)
[2024-03-30] MEDS: ATORVASTATIN 20 MG TAB PO SCH (10:01)
[2024-03-30] MEDS ORDERED: HYDR25TA4 PO (14:57)
--- NOTE | 2024-03-30 17:39 | DVHPNRES ---
Progress Note Date Seen: Mar 30, 2024 Resident Creating Document: CLIFFORD CROOKSMALUINOCENCIO RESIDENT Medical Necessity Reason Pt with a Central, PICC or Fol: No Subjective Review of Systems Patient is a 68-year-old with a past medical history of type 2 diabetes mellitus, CKD stage 3, hypertension was brought to the ER by the emergency medical services for the history of fall around for 4:00 p.m. in the evening. Patient was apparently well and was gardening and around 4 in the evening he suddenly felt dizzy and weak in his legs and fell down. Patient denies loss of consciousness and reports that he got up and went to take a nap. After 2 3 hours he woke up and went to the kitchen where he felt the similar sensation of dizziness and fell down again following which he called 911. Patient denied chest pain, shortness of breath, palpitations. Head CT without contrast showed focal wedge-shaped hypodensity in the right high parietal region with loss of adjacent mtz-white matter interface, focal aortic area seen in the right inferior cerebellum and likely sequela to old ischemic insult. Brain MRI without contrast showed acute infarct in the right parietal in the right frontal lobe as well as corpus callosum. Labs revealed elevated WBC count with left shift, elevated creatinine, lipid panel shows triglyceride elevation, hemoglobin A1c is at 6.5%. Past medical history: As per HPI Past surgical history: none reported Social history: Patient denies smoking, alcohol, drug use. History of alcohol use untill 10 years ago. Family history: Not significant Review of systems 03/29- Patient seen and examined with the bedside. Patient is alert and oriented to time, place and person. GCS 15. Patient reported feeling slightly dizzy and weak in bed. Tele-monitor shows regular rhythm. Patient was afebrile and BP trends in 140s/70s mmHg, SpO2 97% on 2 L per oxygen. Patient denied chest pain, palpitation, nausea, vomiting. Patient denied dysuria, abdominal pain. Patient denied visual abnormality, hearing abnormality 03/30- patient is alert and oriented to time, place and person. GCS 15. Patient reports feeling better than yesterday with minimal deficit felt on the left side. Patient denies blurry vision, difficulty swallowing, no numbness or tingling sensation in the arms or legs, shortness of breath, chest pain, palpitations. Patient was afebrile and BP trends in 140s/70s mmHg, SpO2 98% on room air. Patient was evaluated by Physical therapy and they recommended home health with physical therapy. Patient's health records reviewed eat from the primary care provider Dr. Motta's office for further management and find out why the patient was taking diltiazem at home. Objective vital signs Vital Sign Date Time Temp Pulse Resp B/P (MAP) Pulse Ox O2 Delivery O2 Flow Rate FiO2 03/30/24 17:02 97.9 77 17 123/70 (87) 99 97.9 03/30/24 08:00 Nasal Cannula* 2 28 Total Intake and Output 03/29/24 03/29/24 03/30/24 15:00 23:00 07:00 Intake Total 400 ml 200 ml Balance 400 ml 200 ml medications Current Medications Medications Dose Ordered Sig/Asim Route Start Time Stop Time Status Last Admin Dose Admin Ondansetron HCl 4 mg Q4HP PRN IV 03/29/24 05:15 Acetaminophen 650 mg Q6HP PRN PO 03/29/24 05:15 Morphine Sulfate 2 mg Q4HPRN PRN IV 03/29/24 05:15 Nitroglycerin 0.4 mg Q5MINP PRN SL 03/29/24 05:15 Morphine Sulfate 2 mg Q30M PRN IV 03/29/24 05:15 Clopidogrel Bisulfate 75 mg DAILY PO 03/30/24 10:00 03/30/24 10:00 75 MG Atorvastatin Calcium 80 mg DAILY PO 03/30/24 10:00 03/30/24 10:01 80 MG Diagnostic Test (Pha) 1 strip ACHS 03/29/24 11:30 03/30/24 11:58 1 STRIP Insulin Human Regular ACHS SC 03/29/24 11:30 03/29/24 11:54 2 UNITS Dextrose 50 ml UD PRN IV 03/29/24 11:30 Aspirin 81 mg DAILY PO 03/30/24 10:00 03/30/24 10:00 81 MG Examination Physical Examination Gen - no pallor, no icterus, no cyanosis, no clubbing, no LAD, no edema . Skin - Patients skin is warm and dry. Patient has multiple abrasions on his arms and legs which she reported that when he fell in the garden where he scratched against some plants. HEENT - normocephalic, atraumatic, mildly dry mucous membranes. Neck - full ROM, no LAD, no JVD Pulmonary - B/L vesicular breath sounds. no crackles , no wheezing, no stridor. cardiovascular - normal S1,S2 heard. no murmurs heard. peripheral pulses normal radial 2+, pedal 2+. capillary refill normal <2 secs. GI - soft abdomen without tenderness to palpation. no hepatospleenomegaly. Bowel sounds+ Neurological - Patient is A/O X 3. left upper and lower lower extremity strength 4/5, right upper and lower lower extremity strength 5/5, no facial droop, normal speech, no tremor, no sensory deficiets, normal extraocular movements, normal visual acuity, normal facial sensation and jaw muscle strength, normal 7th nerve examination, no hearing deficit, no vertigo, normal 12th cranial nerve examination, shoulder shrugging normal, normal cranial of 9 and examination. Normal calculations, no krissy-neglect. Romberg sign positive laboratory and microbiology Laboratory Tests 03/30/24 05:12 Test 03/30/24 05:12 Range/Units Serum Glucose 89 74-106 mg/dL Problem List/Assessment/Plan Problem List/Assessment/Plan Assessment and plan # acute ischemic stroke in the right parietal in the right frontal lobe - Head CT without contrast showed focal wedge-shaped hypodensity in the right high parietal region with loss of adjacent mtz-white matter interface, focal aortic area seen in the right inferior cerebellum and likely sequela to old ischemic insult. -Brain MRI without contrast showed acute infarct in the right parietal in the right frontal lobe as well as corpus callosum. - maintain permissive hypertension - aspirin 162 mg and Plavix 75 mg - atorvastatin 80 mg - CT angio head and neck no evidence of significant intracranial stenosis, paroxysmal occlusion or aneurysm, no evidence of hemodynamically significant cervical stenosis or dissection. - carotid Doppler showed no hemodynamically significant stenosis in the right of the left internal carotid system. - physical therapy evaluated patient and recommended home health safety evaluation # ? New onset atrial fibrillation - admitting team reported 1 episode of atrial fibrillation on tele monitor - no further AFib events noted on the tele - patient continues to be on tele - echocardiogram shows left ventricular ejection fraction 55%, grade 1 diastolic dysfunction, normal atria and normal ventricles # type 2 diabetes mellitus - HbA1c 6.5% - patient on mild insulin sliding scale # DANG on CKD stage III likely hemodynamically mediated - serum creatinine elevated at 2.08, improved to 2 - GFR in the 30s - patient given 1 L NS at 60 mL/hour - encourage fluid intake # hypertriglyceridemia - patient on atorvastatin 80 mg # Vitamin B12 deficiency - replenished Goals of care discussed with the patient for over 30 minutes. Full code Plan discussed with Dr. Johnson Plan discussed with: Patient My Orders My Orders Orders - ARNALDO CROOKS Procedure Category Date Status Time Communication Order ORDERS 03/29/24 Transmitted 18:43 Date of Service: Mar 30, 2024 Billing Provider: SANDRA ALVAREZ MD Common Visit Codes: [id number] INP/OBS CARE(HIGH) ARNALDO CROOKS RESIDENT Mar 30, 2024 17:39 SANDRA ALVAREZ MD Apr 01, 2024 09:19
[2024-03-31] VITALS (7 sets, daily range): BP systolic 121–148; BP diastolic 64–90; PULSE 72–96; RESP 17–18; TEMP 97.7–98.2; O2SAT 95–98
[2024-03-31 05:59] LABS: Basophils # (auto) 0 10 ^3/uL (0-0.2); Basophils % (auto) 0.6 % (0.0-2.0); Eosinophils # (auto) 0.5 10 ^3/uL (0-0.8); Eosinophils % (auto) 5.6 % (0.0-7.0); Hematocrit 40.9 % (41.0-53.0); Hemoglobin 13.9 g/dL (13.5-17.5); Lymphocytes # (auto) 1.5 10 ^3/uL (0.4-5.4); Lymphocytes % (auto) 18.1 % (10.0-50.0); Mean Corpuscular Hemoglobin 29.6 pg (28.0-32.0); Mean Corpuscular Hgb Conc. 33.9 g/dL (32.0-36.0); Mean Corpuscular Volume 87.4 fL (80.0-100.0); Monocytes # (auto) 0.6 10 ^3/uL (0-1.3); Monocytes % (auto) 8.1 % (0.0-12.0); Neutrophils # (auto) 5.4 10 ^3/uL (1.6-8.6); Neutrophils % (auto) 67.6 % (37.0-80.0); Platelet Count (auto) 170 10^3/uL (140-450); Red Blood Cells 4.68 10^6/uL (4.5-5.90)
[2024-03-31 06:07] LABS: Chloride 106 mmol/L (98-107); Potassium 4.2 mmol/L (3.5-5.1); Sodium 139 mmol/L (136-145)
[2024-03-31 06:08] LABS: Anion Gap 9 (5-15); Calcium 9.5 mg/dL (8.7-10.4); Carbon Dioxide 24 mmol/L (20-31)
[2024-03-31 06:13] LABS: BUN/Creatinine Ratio 10.8 (10.0-20.0); Blood Urea Nitrogen 24 mg/dL (9-23); Glucose 92 mg/dL (74-106)
[2024-03-31] MEDS ORDERED: CLOP75TA28 PO (11:25)
[2024-03-31] MEDS ORDERED: ASPI1TAB19 PO (11:25)
[2024-03-31] MEDS ORDERED: ATOR-507 PO (11:25)
[2024-03-31] MEDS ORDERED: LOSA-534 PO (11:25)
--- NOTE | 2024-03-31 21:21 | DVHDSRES ---
Discharge Summary Date of Admission Resident Creating Document: ARNALDO CROOKS RESIDENT Mar 29, 2024 at 05:09 Date of Discharge: Mar 31, 2024 Admitting Diagnosis #Acute ischemic parietal lobe stroke based on CT scan ? Cardioembolic #New onset atrial fibrillation #Type 2 diabetes #Dyslipidemia #Chronic kidney disease #Hypertension Wounds: no wounds Labs/Diagnostic Data: Laboratory Results Test 03/31/24 16:13 03/31/24 05:27 03/30/24 05:12 03/29/24 04:06 POC Glucose 133 mg/dl (70-106) White Blood Count 8.0 10^3/uL (4.4-10.8) Red Blood Count 4.68 10^6/uL (4.5-5.90) Hemoglobin 13.9 g/dL (13.5-17.5) Hematocrit 40.9 % (41.0-53.0) Mean Corpuscular Volume 87.4 fL (80.0-100.0) Mean Corpuscular Hemoglobin 29.6 pg (28.0-32.0) Mean Corpuscular Hemoglobin Concent 33.9 g/dL (32.0-36.0) Red Cell Distribution Width 15.0 % (11.8-14.3) Platelet Count 170 10^3/uL (140-450) Mean Platelet Volume 9.2 fL (6.9-10.8) Neutrophils (%) (Auto) 67.6 % (37.0-80.0) Lymphocytes (%) (Auto) 18.1 % (10.0-50.0) Monocytes (%) (Auto) 8.1 % (0.0-12.0) Eosinophils (%) (Auto) 5.6 % (0.0-7.0) Basophils (%) (Auto) 0.6 % (0.0-2.0) Neutrophils # (Auto) 5.4 10 ^3/uL (1.6-8.6) Lymphocytes # (Auto) 1.5 10 ^3/uL (0.4-5.4) Monocytes # (Auto) 0.6 10 ^3/uL (0-1.3) Eosinophils # (Auto) 0.5 10 ^3/uL (0-0.8) Basophils # (Auto) 0 10 ^3/uL (0-0.2) Nucleated Red Blood Cells 0.0 % Sodium Level 139 mmol/L (136-145) Potassium Level 4.2 mmol/L (3.5-5.1) Chloride Level 106 mmol/L (98-107) Carbon Dioxide Level 24 mmol/L (20-31) Anion Gap 9 (5-15) Blood Urea Nitrogen 24 mg/dL (9-23) Creatinine 2.22 mg/dL (0.700-1.30) Glomerular Filtration Rate Calc 32 mL/min (>90) BUN/Creatinine Ratio 10.8 (10.0-20.0) Serum Glucose 92 mg/dL (74-106) Calcium Level 9.5 mg/dL (8.7-10.4) Total Bilirubin 0.7 mg/dL (0.2-1.0) Aspartate Amino Transferase (AST) 30 U/L (13-40) Alanine Aminotransferase (ALT) 18 U/L (7-40) Alkaline Phosphatase 69 U/L (46-116) Total Protein 5.7 g/dL (5.7-8.2) Albumin 3.7 g/dL (3.2-4.8) Urine Color Light-yellow (Yellow) Urine Clarity Clear (Clear) Urine pH 6.0 (5.0-9.0) Urine Specific [place] 1.014 (1.001-1.035) Urine Protein 3+ (Negative) Urine Ketones Negative (Negative) Urine Blood 1+ /uL (Negative) Urine Nitrite Negative (Negative) Urine Bilirubin Negative (Negative) Urine Urobilinogen Normal mg/dL (Negative) Urine Leukocyte Esterase Negative /uL (Negative) Urine RBC 4 /hpf (0 - 3) Urine WBC 3 /hpf (0 - 3) Urine Squamous Epithelial Cells Few /hpf (<5) Urine Bacteria None seen /hpf (None Seen) Urine Mucus Few (None Seen) Urine Glucose Trace mg/dL (Normal) Urine Opiates Screen Neg (NEGATIVE) Urine Fentanyl Screen Neg (NEGATIVE) Urine Barbiturates Screen Neg (NEGATIVE) Urine Phencyclidine Screen Neg (NEGATIVE) Urine Amphetamines Screen Neg (NEGATIVE) Urine Benzodiazepines Screen Neg (NEGATIVE) Urine Cocaine Screen Neg (NEGATIVE) Urine Cannabinoids Screen Neg (NEGATIVE) Test 03/29/24 03:11 Prothrombin Time 10.4 sec (9.3-11.8) Prothrombin Time INR 0.98 (0.9-1.15) Activated Partial Thromboplast Time 23.8 SEC (24.5-34.5) D-Dimer, Quantitative 1.59 mg/L FEU (0.0-0.49) Hemoglobin A1c 6.5 % A1C (<5.7) Magnesium Level 2.0 mg/dL (1.6-2.6) B-Type Natriuretic Peptide 44.10 pg/mL (0-100) Triglycerides Level 228 mg/dL (< 150) Cholesterol Level 166 mg/dL (< 200) LDL Cholesterol 88 mg/dL (< 100) HDL Cholesterol 45 mg/dL (40-59) Vitamin B12 Level 258 pg/mL (211-911) Thyroid Stimulating Hormone (TSH) 2.44 uIU/mL (0.55-4.78) Other Laboratory Tests 03/31/24 05:27 Brief Hx & Hospital Course: Patient is a 68-year-old with a past medical history of type 2 diabetes mellitus, CKD stage 3, hypertension was brought to the ER by the emergency medical services for the history of fall around for 4:00 p.m. in the evening. Patient was apparently well and was gardening and around 4 in the evening he suddenly felt dizzy and weak in his legs and fell down. Patient denied loss of consciousness and reports that he got up and went to take a nap. After 2-3 hours he woke up and went to the kitchen where he felt the similar sensation of dizziness and fell down again following which he called 911. Patient denied chest pain, shortness of breath, palpitations. Head CT without contrast showed focal wedge-shaped hypodensity in the right high parietal region with loss of adjacent mtz-white matter interface, focal aortic area seen in the right inferior cerebellum and likely sequela to old ischemic insult. Brain MRI without contrast showed acute infarct in the right parietal in the right frontal lobe as well as corpus callosum. Labs revealed elevated WBC count with left shift, elevated creatinine, lipid panel shows triglyceride elevation, hemoglobin A1c is at 6.5%. Hospital course Neurology were consulted who recommended target blood pressure has been P 122 243-5 days, CT angiogram head and neck which showed no evidence of significant intracranial stenosis, paroxysmal occlusion or aneurysm, no evidence of hemodynamically significant cervical stenosis or dissection, brain MRI which showed acute infarct in the right parietal in the right frontal lobe as well as the corpus callosum, mild generalized volume loss and sequelae of chronic microvascular ischemic changes. Patient was evaluated daily by the primary team and reported no weakness, sensory deficits or motor deficits and was evaluated by Physical therapy who advised the patient to be sent home with health services for physical therapy. Patient was started aspirin 81 mg and Plavix 75 mg daily which had to be continue for the 1st 21 days following which monotherapy on aspirin should be started. Atorvastatin 80 mg was given in the hospital and the patient was discharged on atorvastatin 40 mg daily with a goal LDL of less than 70. Patient's blood pressure remained elevated in 140s SBP and no blood pressure medication given for permissive hypertension. Echocardiogram was done which showed normal LVEF 55%, grade 1 diastolic dysfunction. Admitting team reported that atrial fibrillation were noted on the tele monitor but during the patient's further stay in the hospital no arrhythmia was noted on the tele monitor. Patient has been taking diltiazem at home and records were requested with the PCP check why the patient is taking the medication. Patient was was planned to be sent home with health services for physical therapy but manager social work were unable to obtain it because of the patient's insurance and the patient was informed about it. Patient reported that he wants to leave. Patient reported that he has a walker at home and would not need a walker. Patient was discharged in stable condition to home and was advised to follow up in the outpatient clinic for further management. Consults/Reason for consult Neurology consultation for acute stroke Operations or Procedures Head CT without contrast showing 1.Focal wedge-shaped hypodensity seen in the right parafalcine high parietal region with loss of adjacent ames-white matter interface. This may be acute ischemic etiology. Correlation with MRI diffusion weighted is suggested. 2.Focal gliotic area is seen in the right inferior cerebellum. This is most likely sequelae to old ischemic insult. 3.Age-related corticocerebral atrophy. Carotid Doppler showing 1.No hemodynamically significant stenosis noted in the right carotid system. 2.Elevated left external carotid artery velocity. No hemodynamically significant stenosis noted in the left internal carotid system. CT angio head and neck 1.No evidence of significant intracranial stenosis, proximal occlusion or aneurysm. 2.No evidence of hemodynamically significant cervical stenosis or dissection. Brain MRI without contrast showing 1.Acute infarct in the right parietal and right frontal lobe as well as corpus callosum. 2.Mild generalized volume loss and sequelae of chronic microvascular ischemic changes. Bilateral lower extremity venous Doppler 1.No right or left femoropopliteal venous thrombosis. 2.Right popliteal fossa Paul's cyst measuring up to 5.0 cm. Condition at Discharge: Good Final Diagnosis/Problems List # acute ischemic stroke in the right parietal in the right frontal lobe # ? New onset atrial fibrillation, ruled out # type 2 diabetes mellitus # DANG on CKD stage III likely hemodynamically mediated # hypertriglyceridemia # Vitamin B12 deficiency Discharge Disposition: Home Discharge Instruct/Medications Diet: Regular Activity: No Restrictions, As Tolerated Follow Up/Referral: Follow up in the D/C clinic on tuesday04/10/2024 Follow up with the PCP in one week Medications: Aspirin 81 mg QD + Plavix 75 mg QD X 21 days Aspirin 81 mg QD lifetime Atorvastatin 40 mg HS Discharge Statement: "Patient was advised to return to the ER or call 911 if any headaches, dizziness, shortness of breath, chest pain, abdominal pain, bleeding, fevers, or worsening of medical condition. Patient was counseled about treatment plan, medications, possible side effects, patientverbalized understanding. All questions were answered to the best of my ability. This discharge took greater then 30 minutes in planning, reviewing documentation, counseling the patient, and discussing with other team members." ASSESSMENT ASSESSMENT Assessment # acute ischemic stroke in the right parietal in the right frontal lobe # ? New onset atrial fibrillation, ruled out # type 2 diabetes mellitus # DANG on CKD stage III likely hemodynamically mediated # hypertriglyceridemia # Vitamin B12 deficiency Date of Service: Mar 31, 2024 Billing Provider: SANDRA ALVAREZ MD Common Visit Codes: [id number] DISCH DAY >30min ARNALDO CROOKS RESIDENT Mar 31, 2024 21:21 SANDRA ALVAREZ MD Apr 01, 2024 09:14
== END 2024-03-31 19:54 | disposition home or self-care (01) | DRG 65 ==
LOC: ER 02:57 → EDUNIT# 02:57 → EDBD 02:57 → TELE 05:09 → TELE-CENTR 12:33
PROVIDERS: ADMIT Student in an Organized Health Care Education/Training Program; ATTEND Student in an Organized Health Care Education/Training Program
DX: I63.9 Cerebral infarction, unspecified (principal); N17.9 Acute kidney failure, unspecified; I12.9 Hypertensive chronic kidney disease with stage 1 through stage 4 chronic kidney disease, or unspecified chronic kidney disease; E11.22 Type 2 diabetes mellitus with diabetic chronic kidney disease; E78.5 Hyperlipidemia, unspecified; N18.30 Chronic kidney disease, stage 3 unspecified; E78.1 Pure hyperglyceridemia; E53.8 Deficiency of other specified B group vitamins; J45.909 Unspecified asthma, uncomplicated; Z82.5 Family history of asthma and other chronic lower respiratory diseases; Z79.899 Other long term (current) drug therapy
CPT/HCPCS: 36415; 70450; 70496; 70551; 71045; 80048; 80053; 80061; 80307; 81001; 82607; 82962; 83036; 83735; 83880; 84443; 85025; 85379; 85610; 85730; 92610; 93005; 93306; 93886; 93970; 97163; 99291; G0378; J1815

== ENCOUNTER 2025-01-08 04:56 | Inpatient (IN) | payer OTHER ==
[~2025-01-08] VITALS: Ht 175.3 cm; Wt 100.0 kg
[~2025-01-08 04:56] MED LIST changes: -AMLO1TAB22 PO; +ASPI1TAB19 PO; +ATOR-507 PO; +CHOL20007 PO; +CLOP75TA28 PO; +DILT-29 PO; +DULA0.5I SC; +DUPI300I SC; -GLIP10TA9 PO; -GLIP5TAB21 PO; +INSUINJ37 SC
--- NOTE | 2025-01-08 06:04 | DVH ---
CLINICAL INDICATION: Swelling and pain TECHNIQUE: XY L ANKLE 3 VIEW Comparison: None FINDINGS/IMPRESSION: : There is no evidence of acute fracture or dislocation. Plantar and retrocalcaneal enthesopathy. Soft tissues are unremarkable.
--- NOTE | 2025-01-08 06:04 | DVH ---
PROCEDURE: Left wrist radiographs. INDICATION: Pain and swelling TECHNIQUE: 3 views of the left wrist were obtained. COMPARISON: None FINDINGS: There is no evidence of fracture or dislocation. There is 1st carpometacarpal joint space narrowing. Joint spaces are otherwise maintained. IMPRESSION: 1. No fracture or dislocation. 2. 1st [facility] joint osteoarthritis.
[2025-01-08 06:21] LABS: Hematocrit 37.5 % (41.0-53.0); Hemoglobin 12.8 g/dL (13.5-17.5); Mean Corpuscular Hemoglobin 29.5 pg (28.0-32.0); Mean Corpuscular Volume 86.3 fL (80.0-100.0); Nucleated Red Blood Cells % 0.0 %
[2025-01-08 06:34] LABS: Alanine Aminotransferase 17 U/L (7-40); Albumin 4.1 g/dL (3.2-4.8); Alkaline Phosphatase 67 U/L (46-116); Anion Gap 12 (5-15); BUN/Creatinine Ratio 14.5 (10.0-20.0); Bilirubin, Total 0.5 mg/dL (0.2-1.0); Calcium 9.9 mg/dL (8.7-10.4); Carbon Dioxide 21 mmol/L (20-31); Chloride 102 mmol/L (98-107); Potassium 4.6 mmol/L (3.5-5.1); Total Protein 7.0 g/dL (5.7-8.2)
[2025-01-08 06:35] LABS: Blood Urea Nitrogen 45 mg/dL (9-23); Glucose 146 mg/dL (74-106); Sodium 135 mmol/L (136-145)
--- NOTE | 2025-01-08 06:35 | ED.PDOC ---
Musculoskeletal HPI Comments This is a 69 year old male NOA presenting to the ED with chief complaint of bilateral leg pain and left wrist pain. Patient relays that he has been experiencing spontaneous bilateral ankle and left wrist pain for the past 3 weeks with no injury sustained. Patient relays that he has not taken pain medication for relief. Patient states he has history of gout. Patient notes his pain is currently a 4/10 at this time. Patient denies any numbness, weakness, fall, injury, chest pain, SOB, or swelling. Chief Complaint: Lower Extremity Time Seen by MD: 06:32 Primary Care Provider: JADEN Reviewed Notes: Nurses Notes, Gravure Press Operator Notes, Medications, Allergies Allergies: Coded Allergies: NO KNOWN ALLERGIES (Unverified , 08/10/16) Home Meds Active Scripts Losartan Potassium (Losartan Potassium) 50 Mg Tab, 1 TAB PO DAILY for 30 Days, #30 TAB 1 Refill Prov:SANDRA ALVAREZ MD 03/31/24 Atorvastatin Calcium (Lipitor) 40 Mg Tab, 1 TAB PO DAILY for 30 Days, #30 TAB 1 Refill Prov:SANDRA ALVAREZ MD 03/31/24 Clopidogrel Bisulfate (Plavix) 75 Mg Tab, 1 TAB PO DAILY for 21 Days, #21 TAB 0 Refills Prov:SANDRA ALVAREZ MD 03/31/24 Aspirin (Aspirin) 81 Mg Tab, 81 MG PO DAILY for 30 Days, #30 TAB 1 Refill Prov:SANDRA ALVAREZ MD 03/31/24 Reported Medications Cholecalciferol (VITAMIN D3) 2,000 Unit Tab, 1 TAB PO DAILY, #30 TAB 5 Refills 03/29/24 Diltiazem Hcl (DILTIAZEM HCL ER) 240 Mg Cap, 180 MG PO DAILY, CAP 03/29/24 Dupilumab (Dupixent) 300 Mg/2 Ml Inj, 300 MG SC [id number] 03/29/24 Dulaglutide (Trulicity) 1.5 Mg/0.5 Ml Inj, 1.5 MG SC QWEEKLY 03/29/24 Insulin Glargine (Lantus Solostar) 100 Unit/Ml Inj, 24 UNIT SC QAM 03/29/24 Information Source: Patient, Emergency Med Personnel Mode of Arrival: EMS Location: Left, Bilateral Extremity Location: Ankle, Wrist Timing: Weeks Prehospital treatment: None Severity: Moderate Able to Move Extremity: Yes Bear Weight: Fully Pain: Moderate Mechanism: Spontaneous Circumstances: Spontaneous Onset of Symptoms: Spontaneous Symptoms: Pain DVT Risk Factors: NONE Past Medical History PAST MEDICAL HISTORY: Asthma, CKF, CVA, DM, Gout, High Lipids, HTN Surgical History: Denies all surgeries Family History Family History: No family hx of DM, No family hx of Heart tano, No family hx of HTN, No family hx ofKidney tano, No family hx of Stroke, Family hx of Cancer, Family hx of lung tano Social History Smoker: Non-Smoker Alcohol: Denies ETOH Use Drugs: Denies Drug Use Lives In: Home Constitutional: denies: chills, diaphoresis, fatigue, fever, malaise, sweats, weakness, others EENTM: denies: blurred vision, double vision, ear bleeding, ear discharge, ear drainage, ear pain, ear ringing, eye pain, eye redness, hearing loss, mouth pain, mouth swelling, nasal discharge, nose bleeding, nose congestion, nose pain, photophobia, tearing, throat pain, throat swelling, voice changes, others Respiratory: denies: cough, hemoptysis, orthopnea, SOB at rest, shortness of breath, SOB with excertion, stridor, wheezing, others Cardiovascular: denies: chest pain, dizzy spells, diaphoresis, Dyspnea on exertion, edema, irregular heart beat, left arm pain, lightheadedness, palpitations, PND, syncope, others Gastrointestinal: denies: abdomen distended, abdominal pain, blood streaked bowels, constipated, diarrhea, dysphagia, difficulty swallowing, hematemesis, melena, nausea, poor appetite, poor fluid intake, rectal bleeding, rectal pain, vomiting, others Genitourinary: denies: burning, dysuria, flank pain, frequency, hematuria, incontinence, penile discharge, penile sore, pain, testicle pain, testicle swelling, urgency, others Neurological: denies: dizziness, fainting, headache, left sided numbness, left sided weakness, numbness, paresthesia, pre-existing deficit, right sided numbness, right sided weakness, seizure, speech problems, tingling, tremors, weakness, others Musculoskeletal: reports: others (Left wrist pain, bilateral ankle pain); denies: back pain, gout, joint pain, joint swelling, muscle pain, muscle stiffness, neck pain Integumetry: denies: bruises, change in color, change in hair/nails, dryness, laceration, lesions, lumps, rash, wounds, others Allergic/Immunocompromised: denies: Difficulty Healing, Frequent Infections, Hives, Itching, others Hematologic/Lymphatic: denies: anemia, blood clots, easy bleeding, easy bruising, swollen glands, others Endocrine: denies: excessive hunger, excessive sweating, excessive thirst, excessive urination, flushing, intolerance to cold, intolerance to heat, unexplained weight gain, unexplained weight loss, others Psychiatric: denies: anxiety, bipolar disorder, depression, hopeless, panic disorder, schizophrenia, sleepless, suicidal, others All Other Systems: Reviewed and Negative Physical Exam General Appearance: Moderate Distress HEENT: Normal ENT Inspection, Pharynx Normal, TMs Normal Neck: Full Range of Motion, Non-Tender, Normal, Normal Inspection Respiratory: Chest Non-Tender, Lungs Clear, No Accessory Muscle Use, No Respiratory Distress, Normal Breath Sounds Cardiovascular: No Edema, No JVD, No Murmur, No Gallop, Normal Peripheral Pulses, Regular Rate/Rhythm Breast Exam: Deferred Gastrointestinal: No Organomegaly, Non Tender, No Pulsatile Mass, Normal Bowel Sounds, Soft Genitalia: Deferred Pelvic: Deferred Rectal: Deferred Extremities: No calf tenderness, Normal capillary refill, No pedal edema Musculoskeletal : Location: Bilateral Extremity Location: Ankle, Wrist (Left wrist tenderness to palpation) Apperance: Swelling, Limited ROM, Tenderness: Moderate Neurologic: Alert, blister pack operator II-XII nml as Tested, No Motor Deficits, Normal Affect, Normal Mood, No Sensory Deficits Cerebellar Function: Normal Reflexes: Normal Skin: Dry, Warm Lymphatic: No Adenopathy Was a procedure done? Was a procedure done?: No Differential Diagnosis EXT Differential Diagnosis: Cellulitis, Fracture, Sprain, Dislocation X-Ray, Labs, Meds, VS Vital Signs Date Time Temp Pulse Resp B/P (MAP) Pulse Ox O2 Delivery O2 Flow Rate FiO2 01/08/25 05:19 98.6 105 16 110/72 98 98.6 Lab Test 01/08/25 05:47 01/08/25 04:57 Range/Units White Blood Count 11.4 H 4.4-10.8 10^3/uL Red Blood Count 4.35 L 4.5-5.90 10^6/uL Hemoglobin 12.8 L 13.5-17.5 g/dL Hematocrit 37.5 L 41.0-53.0 % Mean Corpuscular Volume 86.3 80.0-100.0 fL Mean Corpuscular Hemoglobin 29.5 28.0-32.0 pg Mean Corpuscular Hemoglobin Concent 34.2 32.0-36.0 g/dL Red Cell Distribution Width 14.4 H 11.8-14.3 % Platelet Count 374 140-450 10^3/uL Mean Platelet Volume 8.6 6.9-10.8 fL Neutrophils (%) (Auto) 82.7 H 37.0-80.0 % Lymphocytes (%) (Auto) 7.3 L 10.0-50.0 % Monocytes (%) (Auto) 8.8 0.0-12.0 % Eosinophils (%) (Auto) 0.7 0.0-7.0 % Basophils (%) (Auto) 0.5 0.0-2.0 % Neutrophils # (Auto) 9.4 H 1.6-8.6 10 ^3/uL Lymphocytes # (Auto) 0.8 0.4-5.4 10 ^3/uL Monocytes # (Auto) 1.0 0-1.3 10 ^3/uL Eosinophils # (Auto) 0.1 0-0.8 10 ^3/uL Basophils # (Auto) 0.1 0-0.2 10 ^3/uL Nucleated Red Blood Cells 0.0 % Sodium Level 135 L 136-145 mmol/L Potassium Level 4.6 3.5-5.1 mmol/L Chloride Level 102 98-107 mmol/L Carbon Dioxide Level 21 20-31 mmol/L Anion Gap 12 5-15 Blood Urea Nitrogen 45 H 9-23 mg/dL Creatinine 3.11 H 0.700-1.30 mg/dL Glomerular Filtration Rate Calc 21 >90 mL/min BUN/Creatinine Ratio 14.5 10.0-20.0 Serum Glucose 146 H 74-106 mg/dL Calcium Level 9.9 8.7-10.4 mg/dL Total Bilirubin 0.5 0.2-1.0 mg/dL Aspartate Amino Transferase (AST) 18 13-40 U/L Alanine Aminotransferase (ALT) 17 7-40 U/L Alkaline Phosphatase 67 46-116 U/L B-Type Natriuretic Peptide 14.99 0-100 pg/mL Total Protein 7.0 5.7-8.2 g/dL Albumin 4.1 3.2-4.8 g/dL Uric Acid Pending Left wrist XR indicates: 1. No fracture or dislocation. 2. 1st CMC joint osteoarthritis. Left ankle XR indicates: There is no evidence of acute fracture or dislocation. Plantar and retrocalcaneal enthesopathy. Soft tissues are unremarkable. The CBC shows an elevated white blood cell count of 11.4 The uric acid is pending An ESR is pending The chemistry panel shows some renal disease with a BUN of 45 and a creatinine of 3.11 The patient is being admitted at this time An IV Hep-Lock is being established. Images Reviewed?: Images reviewed and evaluated by me Time of 1ST Reevaluation: 07:29 Reevaluation 1ST: Unchanged Patient Education/Counseling: Diagnosis, Treatment, Prognosis Family Education/Counseling: No Family Present Departure 1 Departure Time of Disposition: 06:55 Impression: Primary Impression: Bilateral cellulitis of lower leg Disposition: ADMITTED INPATIENT Admit to: Med Surg Condition: Fair Critical Care Note Critical Care Time?: No Stability Stability form required: Yes Unstable for transfer: ED Physician Assesment (Clinical assesment) Heart Score Heart Score: Heart Score Response (Comments) Value History N/A 0 EKG N/A 0 Age N/A 0 Risk Factors N/A 0 Troponin N/A 0 Total 0 I personally scribed for ARSH MALIK MD ([email or web address]) on 01/08/25 at 06:35. Electronically submitted by Tigre Riojas ([email or web address]). I personally scribed for ARSH MALIK MD ([email or web address]) on 01/08/25 at 06:35. Electronically submitted by Tigre Riojas ([email or web address]). I personally scribed for ARSH MALIK MD ([email or web address]) on 01/08/25 at 06:36. Electronically submitted by Tigre Riojas ([email or web address]). ARSH MALIK MD Jan 08, 2025 06:35
[2025-01-08 12:30] VITALS: PULSE 82; RESP 16; O2SAT 96
[2025-01-08] MEDS: CLINDAMYCIN 600MG IV 50 ML IV ONE (13:24)
[2025-01-08] MEDS ORDERED: DOCUSATE SOD 100 MG CAP PO PRN (14:15)
--- NOTE | 2025-01-08 14:22 | DVHHP2 ---
ALLISON GALLOWAY RESIDENT 01/08/25 1422: History of Present Illness History of Present Illness Patient is 69 years old male with past medical history of hypertension, diabetes mellitus type 2, hyperlipidemia, CKD, CVA, asthma, gout came with a complaint of bilateral ankle and left wrist pain for 2 weeks. As per patient pain started after he woke up from sleep 2 weeks before, 5/10, intermittent, sharp pain, aggravated with movement. Patient denied any dysuria, fever, diarrhea, chest pain or shortness of breath. Patient reported sexually not active. Initial lab workup revealed leukocytosis WBC 11.4, hemoglobin 12.8, neutrophil 82.7%, serum creatinine 3.11, BUN 45, GFR 21, BNP 149. X-ray left wrist- No fracture or dislocation. 1st CMC joint osteoarthritis. X-ray of the left ankle- There is no evidence of acute fracture or dislocation.Plantar and retrocalcaneal enthesopathy. Past Medical History hypertension, diabetes mellitus type 2, hyperlipidemia, CKD, CVA, asthma, gout Past Social History Denies smoking/alcoholism says drug abuse, lives alone at home. Review of Systems Review of Systems Allergy- NKDA Personal History/ Social History- denies smoking/alcoholism dressed trach abuse, lives alone at home Cardiovascular- deny acute chest pain or shortness of breath or cough or palpitation Respiratory denies cough or short of breath or wheezing Gastrointestinal- denies any rectal bleeding, nausea or vomiting Neurological- denies acute dysarthria, dysphagia, change in vision Psychiatry- denies depression or SI or HI Skin- denies acute rash or purpura Allergies: Coded Allergies: NO KNOWN ALLERGIES (Unverified , 08/10/16) Medications Current Medications Medications Dose Ordered Sig/Asim Route Start Time Stop Time Status Last Admin Dose Admin Sodium Chloride 10 ml Q8HR IV 01/08/25 22:00 UNV Docusate Sodium 100 mg BIDPRN PRN PO 01/08/25 14:15 UNV Acetaminophen 650 mg Q6HP PRN PO 01/08/25 14:15 UNV Ampicillin Sodium/ Sulbactam Sodium 3 gm/Sodium Chloride 100 ml @ 100 mls/hr Q12H IV 01/08/25 14:30 UNV Exam Vital Signs Vital Signs Date Time Temp Pulse Resp B/P (MAP) Pulse Ox O2 Delivery O2 Flow Rate FiO2 01/08/25 12:30 82 16 96 Room Air* 0 21 01/08/25 12:30 97.9 113/56 (75) 97.9 Exam General examination- awake, alert, oriented HEENT- PEERLA, no acute nasal discharge Cardiovascular- S1-S2 audible, rate and rhythm regular, no murmur Respiratory- CTAB, no wheeze or rhonchi Gastrointestinal-nontender, bowel sound+. Nondistended Musculoskeletal-no acute joint swelling or tenderness or redness extremity- bilateral ankle swelling, edematous, tender to touch, left more erythematous than right. Left wrist tenderness. Psychiatry- denies depression or SI or HI Skin- no acute rash or purpura Labs/Xrays Labs Test 01/08/25 11:45 01/08/25 05:47 01/08/25 04:57 Range/Units POC Glucose 128 H 70-106 mg/dl White Blood Count 11.4 H 4.4-10.8 10^3/uL Red Blood Count 4.35 L 4.5-5.90 10^6/uL Hemoglobin 12.8 L 13.5-17.5 g/dL Hematocrit 37.5 L 41.0-53.0 % Mean Corpuscular Volume 86.3 80.0-100.0 fL Mean Corpuscular Hemoglobin 29.5 28.0-32.0 pg Mean Corpuscular Hemoglobin Concent 34.2 32.0-36.0 g/dL Red Cell Distribution Width 14.4 H 11.8-14.3 % Platelet Count 374 140-450 10^3/uL Mean Platelet Volume 8.6 6.9-10.8 fL Neutrophils (%) (Auto) 82.7 H 37.0-80.0 % Lymphocytes (%) (Auto) 7.3 L 10.0-50.0 % Monocytes (%) (Auto) 8.8 0.0-12.0 % Eosinophils (%) (Auto) 0.7 0.0-7.0 % Basophils (%) (Auto) 0.5 0.0-2.0 % Neutrophils # (Auto) 9.4 H 1.6-8.6 10 ^3/uL Lymphocytes # (Auto) 0.8 0.4-5.4 10 ^3/uL Monocytes # (Auto) 1.0 0-1.3 10 ^3/uL Eosinophils # (Auto) 0.1 0-0.8 10 ^3/uL Basophils # (Auto) 0.1 0-0.2 10 ^3/uL Nucleated Red Blood Cells 0.0 % Sodium Level 135 L 136-145 mmol/L Potassium Level 4.6 3.5-5.1 mmol/L Chloride Level 102 98-107 mmol/L Carbon Dioxide Level 21 20-31 mmol/L Anion Gap 12 5-15 Blood Urea Nitrogen 45 H 9-23 mg/dL Creatinine 3.11 H 0.700-1.30 mg/dL Glomerular Filtration Rate Calc 21 >90 mL/min BUN/Creatinine Ratio 14.5 10.0-20.0 Serum Glucose 146 H 74-106 mg/dL Calcium Level 9.9 8.7-10.4 mg/dL Total Bilirubin 0.5 0.2-1.0 mg/dL Aspartate Amino Transferase (AST) 18 13-40 U/L Alanine Aminotransferase (ALT) 17 7-40 U/L Alkaline Phosphatase 67 46-116 U/L B-Type Natriuretic Peptide 14.99 0-100 pg/mL Total Protein 7.0 5.7-8.2 g/dL Albumin 4.1 3.2-4.8 g/dL Uric Acid 8.9 3.7-9.2 mg/dL SEPSIS Sepsis Screen Date sepsis recognized/suspect: Jan 08, 2025 Time Sepsis recognized/suspect: 1229 Recent Procedure: No On Antibiotic Therapy: No Respiratory Rate >20: No Heart Rate >90: No Temp<36 C (96.8 F) or >38.3 C: No SBP <90 or MAP <65 mmHG: No New Acute Mental Status Change: No Is the patient on CPAP, BIPAP,: No Physician Orders Admit (01/08/25 14:13) Code Status (01/08/25 14:13) Renal Standard(2gna,3gk,Lopho) (01/08/25 Dinner) Sodium Chloride Lock (Saline Lock Ns) (01/08/25 22:00) Docusate Sodium Capsule (Colace Capsule) (01/08/25 14:15) Acetaminophen Tablet (Tylenol Tablet) (01/08/25 14:15) Notify Of Changes From Base (01/08/25 14:13) * Orthopedic Consult (01/08/25 14:18) Uric Acid (01/09/25 04:00) Blood Culture (01/08/25 14:18) Ampicillin & Sulbactam Sodium (Unasyn) (01/08/25 14:30) Nohemi; Direct (01/08/25 14:20) Famotidine Tablet (Pepcid Tablet) (01/08/25 14:30) Vital Signs Date Time Temp Pulse Resp B/P (MAP) Pulse Ox O2 Delivery O2 Flow Rate FiO2 01/08/25 12:30 82 16 96 Room Air* 0 21 01/08/25 12:30 97.9 16 82 113/56 (75) 96 97.9 Laboratory Tests Test 01/08/25 05:47 White Blood Count 11.4 10^3/uL (4.4-10.8) H Medications Medications Dose Ordered Sig/Asim Route Start Time Stop Time Status Last Admin Dose Admin Clindamycin Phosphate 50 ml @ 50 mls/hr ONCE ONCE IV 01/08/25 07:00 01/08/25 07:59 DC 01/08/25 13:24 50 MLS/HR Assessment/Plan Assessment/Plan Assessment and plan Acute multiple joint pain likely due septic arthritis, rule out gout/pseudogout/fracture -ordered blood culture -ordered aspiration of the left ankle -x-ray left ankle and left wrist, no fracture noted -ordered MRI of the left ankle without contrast -ordered ESR CRP -plan is to start IV antibiotic Unasyn after blood culture and aspiration of the joint -Tylenol p.r.n. # DANG on CKD likely due to VMN -ordered IV fluid -avoid dehydration and nephrotoxic drugs #SIRS -patient has tachycardia, leukocytosis -ordered blood culture, ESR, CRP -ordered Unasyn IV as prescribed -pending urinalysis -pending aspiration of the left ankle joint # diabetes mellitus type 2 -insulin sliding scale as prescribed -resumed home medication insulin Lantus -monitor blood sugar # hypertension -losartan 50 mg p.o. daily # hyperlipidemia -atorvastatin as prescribed # Asthma, no acute exacerbation -ordered nebulization PRN # history of CVA -patient on aspirin and clopidogrel # osteoarthritis -continue current pain medication as prescribed # obesity, -patient was counseled about the effect of obesity on health, low-fat diet, weight reduction, physical activity as tolerated Goals of care, Code status full code ; discussed with >15 minutes PUD prophylaxis: Pepcid DVT prophylaxis: Heparin Plan discussed with Dr. Johnson , nursing staff, Total time spent on patient evaluation, chart review, assessment and plan, discussion discussion >35 minutes Plan discussed with: Patient, Other My Orders Orders - ALLISON GALLOWAY RESIDENT Procedure Category Date Status Time Admit ADMIT 01/08/25 Transmitted 14:13 Code Status CODE 01/08/25 Transmitted 14:13 Renal DIET 01/08/25 Transmitted Standard(2gna,3gk,Lopho) Dinner Sodium Chloride Lock PHA 01/08/25 Logged (Saline Lock Ns) 22:00 Docusate Sodium PHA 01/08/25 Logged Capsule (Colace 14:15 Acetaminophen Tablet PHA 01/08/25 Logged (Tylenol Tablet) 14:15 Notify Of Changes NEMESIO 01/08/25 In Process From Base 14:13 * Orthopedic Consult CONS 01/08/25 Transmitted 14:18 Uric Acid LAB 01/09/25 Verified 04:00 Blood Culture YOLY 01/08/25 Logged 14:18 Ampicillin & PHA 01/08/25 Logged Sulbactam Sodium 14:30 Nohemi; Direct LAB 01/08/25 Verified 14:20 Famotidine Tablet PHA 01/08/25 Verified (Pepcid Tablet) 14:30 Date of Service: Jan 08, 2025 Billing Provider: SANDRA ALVAREZ MD Common Visit Codes: [id number] INP/OBS CARE (HIGH) Secondary Visit Codes: 56325-[id number] CARE PLAN 30 MINUTES CAMILA LOVELACE RESIDENT 01/08/25 1933: Review of Systems Allergies: Coded Allergies: NO KNOWN ALLERGIES (Unverified , 08/10/16) SANDRA ALVAREZ MD 01/14/25 0138: Date of Service: Jan 08, 2025 Billing Provider: SANDRA ALVAREZ MD Common Visit Codes: [id number] INP/OBS CARE (HIGH) Secondary Visit Codes: [id number] CARE PLAN 30 MINUTES ALLISON GALLOWAY RESIDENT Jan 08, 2025 14:22 CAMILA LOVELACE RESIDENT Jan 08, 2025 19:33 SANDRA ALVAREZ MD Jan 14, 2025 01:38
[2025-01-08] MEDS: AMPICILLIN & SULBACTAM SODIUM 3 GM in SODIUM CHL 0.9% 100 ML IV SCH (14:30)
[2025-01-08] MEDS: SODIUM CHLORIDE 0.9% 500 ML IV ONE (14:51)
--- NOTE | 2025-01-08 14:52 | DVH ---
CHEST RADIOGRAPH Indication: PNA Technique: Single frontal view of the chest was obtained Comparison: XY CHEST PORTABLE on DOS: 03/29/24 FINDINGS: Lines and Tubes: None Lungs: Obscuration of the left hemidiaphragm. Image rotation to the left.The right lung is clear. No pneumothorax. Cardiomediastinal contours: Borderline cardiomegaly Bones: No acute osseous abnormality. IMPRESSION: Obscuration of the left hemidiaphragm which may be from overlying cardiac silhouette with underlying pleural effusion/atelectasis / pneumonia not excluded.
[2025-01-08] MEDS: FAMOTIDINE 20 MG TAB PO SCH (14:53)
[2025-01-08] MEDS ORDERED: HYDROcodone-ACET 5/325MG TAB PO PRN (15:00)
[2025-01-08] MEDS ORDERED: DEXTROSE (50%) 50ML SYRG IV PRN (15:15)
[2025-01-08] MEDS: ACCU-CHEK COMFORT CURVE STRIP VI SCH (16:15)
[2025-01-08] MEDS: SODIUM CHLORIDE 0.9% 1,000 ML IV ONE (17:02)
[2025-01-08 17:35] VITALS: PULSE 80; RESP 17; O2SAT 98
[2025-01-08] MEDS: InsuLIN REG 1unit/0.01ml Soln (100units/ml) SC SCH (18:15)
[2025-01-08] MEDS: COLCHICINE 0.6 MG CAP PO SCH (18:59)
[2025-01-08] MEDS ORDERED: DULAGLUTIDE 1.5 MG SC SCH (19:00)
--- NOTE | 2025-01-08 19:30 | DVHINCON2 ---
Consult Note Consult Consult Note History of Present Illness (HPI): Mr. Eduardo Soto is admitted to the ER with a complaint of right ankle pain greater than left ankle pain. The patient reports a two-week history of progressive bilateral ankle pain and redness, with worsening symptoms over the last few days. He endorses pain with weight-bearing and ankle range of motion bilaterally. He has a history of gout, though he denies any acute gout episodes within the p ast three years and reports no use of daily uric acidlowering medications. He denies IV drug use, diabetes, or any recent injections to either ankle. He denies fever, chills, nausea, vomiting, or systemic symptoms. Past Medical History: Gout (no recent flares in 3 years) No history of diabetes No history of IV drug use Medications: None for gout currently Exam: General: Patient alert, in mild distress secondary to ankle pain. Afebrile. Right Ankle: Erythema noted at medial malleolus Mild swelling present mild pain with dorsiflexion and plantarflexion No open lesions Neurovascularly intact distally Left Ankle: Mild erythema compared to right over lateral malleolus mild Pain with range of motion No swelling or open lesions Neurovascularly intact MRI LEFT KNEE : 1. Large joint effusion and synovitis in the left ankle. Mild subcutaneous edema. The appearance is fairly nonspecific and septic arthritis can have this appearance. Arthrocentesis may be considered if clinically warranted. 2. No MR evidence of osteomyelitis. 3. Medial and lateral subcutaneous edema. 4. Tear of the anterior talofibular ligament. Deltoid ligament sprain. 5. Fluid in the long medial flexor tendon and peroneal sheaths which may reflect tenosynovitis. 6. Peroneus brevis interstitial tear. Diagnostics: Labs: Uric Acid: 8.9 WBC: 11.6 ESR: 84 Imaging: X-ray: No bony involvement, no gas visualized MRI: Pending --- Assessment: Mr Soto is admitted with bilateral ankle pain and erythema, right worse than left, in the setting of a history of gout. Differential includes acute gout flare vs. septic arthritis. No systemic symptoms are present, though labs show elevated WBC and ESR, requiring exclusion of infection. --- Plan: 1. Gout treatment to be initiated by hospitalist. 2. IR referral for right ankle aspiration to rule out septic arthritis. Request for synovial fluid analysis including cell count, gram stain, and culture. 3. Continue monitoring/trend labs(esr crp, cbc) and vitals. 4. MRI reviewed today , see above details 5. Case discussed with Dr. Malone (orthopedic surgeon). 6. Orthopedics to re-evaluate tomorrow. contact Ortho if any changes in pt condition or new results or as needed 7. Patient counseled; all questions answered; patient agrees with rosales Plan discussed with: Patient, Other (hospitalist) Visit Coding Surgery Date of Service if different f: Jan 08, 2025 Billing Provider: VALENTINE STANLEY Surgery Visit Codes: 35504 - INP CONSULT <55 MIN VALENTINE STANLEY Jan 08, 2025 19:30
[2025-01-08 19:35] VITALS: PULSE 78; RESP 18; O2SAT 98
[2025-01-08] MEDS: ACETAMINOPHEN 325 MG TAB PO PRN (20:12)
[2025-01-08] MEDS: SODIUM CHLOR 0.9% PF (SALINE LOCK) 10ML VIAL/SYR IV SCH (21:21)
[2025-01-08] MEDS: HEPARIN SODIUM (PORCINE) 5000 UNITS/ML 1ML VIAL SC SCH (21:22)
[2025-01-08] MEDS: ATORVASTATIN 20 MG TAB PO SCH (21:22)
[2025-01-08 22:42] VITALS: BP 136/82; PULSE 78; PULSE 80; RESP 18; TEMP 97; TEMP 98.4; O2SAT 97
[2025-01-08] MEDS ORDERED: DILT30TA PO (23:14)
[2025-01-09] VITALS (8 sets, daily range): BP systolic 109–140; BP diastolic 71–86; PULSE 77–93; RESP 16–20; TEMP 97.8–98.6; O2SAT 96–99
[2025-01-09 03:37] LABS: Urine Protein, UAD 2+ (Negative); Urine WBC Clumps PRESENT /hpf (None Seen)
[2025-01-09 03:42] LABS: Amphetamine Screen, Urine Neg (NEGATIVE); Barbiturate Scree,Urine Neg (NEGATIVE); Benzodiazephine Screen, Urine Neg (NEGATIVE); Cannabinoid Screen, Urine Neg (NEGATIVE); Cocaine Screen, Urine Neg (NEGATIVE); Opiate Scree,Urine Neg (NEGATIVE); Phencyclidine Screen, Urine Neg (NEGATIVE)
--- NOTE | 2025-01-09 05:54 | DVH ---
CLINICAL INDICATION: Rule out septic arthritis/fracture COMPARISON: XY L ANKLE 3 VIEW on DOS: 01/08/25 TECHNIQUE: Multiplanar, multisequence MRI of the left ankle was performed without intravenous contra st. Contrast: None INTERPRETATION: Bones: No evidence of acute fracture. No evidence of marrow replacing lesion to suggest osteomyelit is or bone mass. Joints: There is a large ankle joint effusion. There is synovitis. Alignment: Unremarkable. Ligaments: The anterior talofibular ligament is torn. The posterior talofibular ligament is intact. T he calcaneofibular ligament is intact. The inferior tibiofibular ligaments are intact. Deltoid ligame nt thickening and T2 hyperintensity reflecting sprain. Spring ligament is intact. Tendons:The Achilles tendon is intact. There is a tear of the peroneus brevis tendon. Peroneus long us is intact. The posterior tibialis, flexor hallucis longus and flexor digitorum longus tendons are intact. There is fluid in the posterior tibial and flexor hallucis longus tendon sheaths. Fluid als o noted in the peroneal tendon sheaths. The dorsal extensor tendons are intact. Plantar Fascia: The medial cord of the plantar fascia is intact. Heel spur. Bursae: The retroachilles bursa is not fluid distended. The retrocalcaneal bursa is not fluid diste nded. Mass/Fluid: There is fluid in the sinus tarsi. Muscles: Intrinsic muscles of the foot are unremarkable. Other soft tissues: There is subcutaneous edema in the medial and lateral ankle. IMPRESSION: 1. Large joint effusion and synovitis in the left ankle. Mild subcutaneous edema. The appearance is f airly nonspecific and septic arthritis can have this appearance. Arthrocentesis may be considered if clinically warranted. 2. No MR evidence of osteomyelitis. 3. Medial and lateral subcutaneous edema. 4. Tear of the anterior talofibular ligament. Deltoid ligament sprain. 5. Fluid in the long medial flexor tendon and peroneal sheaths which may reflect tenosynovitis. 6. Peroneus brevis interstitial tear.
[2025-01-09] MEDS: INSULIN LANTUS (GLARGINE) 1 /0.01ml (100units/ml) SC SCH (06:26)
[2025-01-09 07:32] LABS: Hematocrit 33.1 % (41.0-53.0); Hemoglobin 11.5 g/dL (13.5-17.5); Mean Corpuscular Hemoglobin 29.8 pg (28.0-32.0); Mean Corpuscular Volume 86.0 fL (80.0-100.0)
[2025-01-09 07:45] LABS: Alanine Aminotransferase 18 U/L (7-40); Albumin 3.7 g/dL (3.2-4.8); Alkaline Phosphatase 60 U/L (46-116); Anion Gap 11 (5-15); BUN/Creatinine Ratio 14.5 (10.0-20.0); Calcium 9.2 mg/dL (8.7-10.4); Carbon Dioxide 21 mmol/L (20-31); Chloride 105 mmol/L (98-107); Magnesium 2.2 mg/dL (1.6-2.6); Potassium 4.7 mmol/L (3.5-5.1); Sodium 137 mmol/L (136-145); Total Protein 6.5 g/dL (5.7-8.2)
[2025-01-09 07:46] LABS: Bilirubin, Total 0.4 mg/dL (0.2-1.0)
[2025-01-09 07:49] LABS: Blood Urea Nitrogen 46 mg/dL (9-23); Glucose 129 mg/dL (74-106)
[2025-01-09 08:14] LABS: RBC Morphology Normal; Total Cells Counted 100.0 (100)
[2025-01-09] MEDS ORDERED: PATIENTS OWN MEDICATION (Cholecalciferol (Vitamin D3) 1 TAB) PO SCH (10:00)
[2025-01-09] MEDS ORDERED: PATIENTS OWN MEDICATION (Atorvastatin Calcium (Lipitor) 1 TAB) PO SCH (10:00)
[2025-01-09] MEDS: CLOPIDOGREL BISULFATE 75 MG TAB PO SCH (10:58)
[2025-01-09] MEDS: LOSARTAN POTASSIUM 50 MG TAB PO SCH (10:59)
[2025-01-09] MEDS: CHOLECALCIFEROL (VITD3) 1,000UNIT=25mCg TAB PO SCH (11:00)
[2025-01-09] MEDS: ASPirin-EC 81 mg tab PO SCH (11:00)
[2025-01-09] MEDS: methylPREDNISolone SOD SUCC 40 MG/ML VL IV SCH (15:32)
--- NOTE | 2025-01-09 16:33 | DVHPNRES ---
Progress Note Date Seen: Jan 09, 2025 Resident Creating Document: ALLISON GALLOWAY RESIDENT Medical Necessity Reason Pt with a Central, PICC or Fol: No Subjective Review of Systems Patient is 69 years old male with past medical history of hypertension, diabetes mellitus type 2, hyperlipidemia, CKD, CVA, asthma, gout came with a complaint of bilateral ankle and left wrist pain for 2 weeks. As per patient pain started after he woke up from sleep 2 weeks before, 5/10, intermittent, sharp pain, aggravated with movement. Patient denied any dysuria, fever, diarrhea, chest pain or shortness of breath. Patient reported sexually not active. Initial lab workup revealed leukocytosis WBC 11.4, hemoglobin 12.8, neutrophil 82.7%, serum creatinine 3.11, BUN 45, GFR 21, BNP 149. X-ray left wrist- No fracture or dislocation. 1st [facility] joint osteoarthritis. X-ray of the left ankle- There is no evidence of acute fracture or dislocation.Plantar and retrocalcaneal enthesopathy. PMH- hypertension, diabetes mellitus type 2, hyperlipidemia, CKD, CVA, asthma, gout PSH Denies smoking/alcoholism says drug abuse, lives alone at home. Allergy- NKDA Personal History/ Social History- denies smoking/alcoholism dressed trach abuse, lives alone at home Cardiovascular- deny acute chest pain or shortness of breath or cough or palpitation Respiratory denies cough or short of breath or wheezing Gastrointestinal- denies any rectal bleeding, nausea or vomiting Neurological- denies acute dysarthria, dysphagia, change in vision Psychiatry- denies depression or SI or HI Skin- denies acute rash or purpura Patient is seen today at bedside. Labs and chart reviewed. Urinalysis revealed leukocyte esterase 3+, RBC 19, WBC 4254. UDS negative. CRICKET negative. Patient reported pain is getting better. Ordered IR consult for aspiration of ankle joint. Patient was seen by Orthopedics, recommendation reviewed and appreciated. MRI of the left ankle revealed- Large joint effusion and synovitis in the left ankle. Mild subcutaneous edema. The appearance is fairly nonspecific and septic arthritis can have this appearance. Arthrocentesis may be considered if clinically warranted. No MR evidence of osteomyelitis. Medial and lateral subcutaneous edema. Tear of the anterior talofibular ligament. Deltoid ligament sprain. Fluid in the long medial flexor tendon and peroneal sheaths which may reflect tenosynovitis. Peroneus brevis interstitial tear. Objective vital signs Vital Sign Date Time Temp Pulse Resp B/P (MAP) Pulse Ox O2 Delivery O2 Flow Rate FiO2 01/09/25 11:08 81 122/83 01/09/25 04:59 98.4 18 97 98.4 01/08/25 22:42 Room Air* 0 21 Total Intake and Output 01/08/25 01/08/25 01/09/25 15:00 23:00 07:00 Intake Total 50 ml 75 ml 0 ml Output Total 400 ml Balance 50 ml 75 ml -400 ml medications Current Medications Medications Dose Ordered Sig/Asim Route Start Time Stop Time Status Last Admin Dose Admin Sodium Chloride 10 ml Q8HR IV 01/08/25 22:00 01/09/25 15:33 10 ML Docusate Sodium 100 mg BIDPRN PRN PO 01/08/25 14:15 Acetaminophen 650 mg Q6HP PRN PO 01/08/25 14:15 01/08/25 20:12 650 MG Ampicillin Sodium/ Sulbactam Sodium 3 gm/Sodium Chloride 100 ml @ 100 mls/hr Q12H IV 01/08/25 14:30 01/09/25 15:33 100 MLS/HR Famotidine 20 mg Q12HR PO 01/08/25 14:30 01/09/25 11:00 20 MG Aspirin 81 mg DAILY PO 01/09/25 10:00 01/09/25 11:00 81 MG Clopidogrel Bisulfate 75 mg DAILY PO 01/09/25 10:00 01/09/25 10:58 75 MG Losartan Potassium 50 mg DAILY PO 01/09/25 10:00 01/09/25 10:59 50 MG Patient Own Medication 1 tab DAILY PO 01/09/25 10:00 UNV Patient Own Medication 1 tab DAILY PO 01/09/25 10:00 UNV Diltiazem HCl 180 mg DAILY PO 01/09/25 10:00 01/09/25 10:59 180 MG Patient Own Medication 1.5 mg QWEEKLY SC 01/08/25 19:00 Insulin Glargine 24 units QAM SC 01/09/25 07:00 01/09/25 06:26 24 UNITS Atorvastatin Calcium 40 mg HS PO 01/08/25 22:00 01/08/25 21:22 40 MG Cholecalciferol 2,000 unit DAILY PO 01/09/25 10:00 01/09/25 11:00 2,000 UNIT Heparin Sodium (Porcine) 5,000 units Q12HR SC 01/08/25 22:00 01/09/25 12:31 5,000 UNITS Acetaminophen/ Hydrocodone Bitart 1 tab Q6HPRN PRN PO 01/08/25 15:00 Diagnostic Test (Pha) 1 strip ACHS 01/08/25 17:00 01/09/25 12:32 1 STRIP Insulin Human Regular ACHS SC 01/08/25 17:00 01/09/25 06:22 2 UNITS Dextrose 50 ml UD PRN IV 01/08/25 15:15 Colchicine 0.6 mg DAILY PO 01/08/25 18:00 01/09/25 11:00 0.6 MG Methylprednisolone Sodium Succinate 40 mg DAILY IV 01/09/25 14:15 01/09/25 15:32 40 MG Examination General examination- awake, alert, oriented HEENT- PEERLA, no acute nasal discharge Cardiovascular- S1-S2 audible, rate and rhythm regular, no murmur Respiratory- CTAB, no wheeze or rhonchi Gastrointestinal-nontender, bowel sound+. Nondistended Musculoskeletal-no acute joint swelling or tenderness or redness extremity- bilateral ankle swelling, edematous, tender to touch, left more erythematous than right. Left wrist tenderness. Psychiatry- denies depression or SI or HI Skin- no acute rash or purpura laboratory and microbiology Laboratory Tests 01/09/25 07:00 Test 01/09/25 07:00 Range/Units Serum Glucose 129 H 74-106 mg/dL Microbiology Date/Time Source Procedure Growth Status 01/08/25 14:42 Blood Blood Culture - Preliminary NO GROWTH AFTER 24 HOURS OF INCUBATION. Resulted Problem List/Assessment/Plan Problem List/Assessment/Plan Assessment/Plan Assessment and plan Acute multiple joint pain likely due septic arthritis, rule out gout/pseudogout/fracture -ordered blood culture -ordered aspiration of the left ankle -x-ray left ankle and left wrist, no fracture noted -ordered MRI of the left ankle without contrast revealed- Large joint effusion and synovitis in the left ankle. The appearance is fairly nonspecific and septic arthritis can have this appearance. No MR evidence of osteomyelitis. Medial and lateral subcutaneous edema. Tear of the anterior talofibular ligament. Deltoid ligament sprain. Fluid in the long medial flexor tendon and peroneal sheaths which may reflect tenosynovitis. Peroneus brevis interstitial tear. -continue IV antibiotic Zosyn as prescribed -ordered IR consult for aspiration of ankle joint -Tylenol p.r.n. # DANG on CKD likely due to VMN -ordered IV fluid -avoid dehydration and nephrotoxic drugs #SIRS -patient has tachycardia, leukocytosis -blood culture preliminary no growth so far -Unasyn IV as prescribed -ordered IR consult for aspiration of ankle joint -pending aspiration of the left ankle joint #Tear of the anterior talofibular ligament. # Deltoid ligament sprain. #Fluid in the long medial flexor tendon and peroneal sheaths which may reflect tenosynovitis. # Peroneus brevis interstitial tear. -patient is being follow up Orthopedics surgery team # UTI -continue IV antibiotic as prescribed -pending urine culture # diabetes mellitus type 2 -insulin sliding scale as prescribed -resumed home medication insulin Lantus -monitor blood sugar # hypertension -losartan 50 mg p.o. daily # hyperlipidemia -atorvastatin as prescribed # Asthma, no acute exacerbation -ordered nebulization PRN # history of CVA -patient on aspirin and clopidogrel # osteoarthritis -continue current pain medication as prescribed # obesity, -patient was counseled about the effect of obesity on health, low-fat diet, weight reduction, physical activity as tolerated Goals of care, Code status full code ; discussed with >15 minutes PUD prophylaxis: Pepcid DVT prophylaxis: Heparin Plan discussed with Dr. Johnson , nursing staff, Total time spent on patient evaluation, chart review, assessment and plan, discussion discussion >35 minutes Plan discussed with: Patient, Other Plan discussed with: Patient, Other (RN) My Orders My Orders Orders - ALLISON GALLOWAY Procedure Category Date Status Time Colchicine (Colcrys) PHA 01/08/25 In Process 18:00 Urine Bacterial YOLY 01/09/25 In Process Culture 07:05 Methylprednisolone PHA 01/09/25 In Process Sod Succ (Solu Medrol 14:15 Mrsa Screen YOLY 01/09/25 Logged 14:40 * Radiologist Consult CONS 01/09/25 Transmitted 15:23 Date of Service: Jan 09, 2025 Billing Provider: SANDRA ALVAREZ MD Common Visit Codes: [id number] INP/OBS CARE(HIGH) ALLISON GALLOWAY Jan 09, 2025 16:33 SANDRA ALVAREZ MD Jan 14, 2025 00:52
[2025-01-09 16:37] LABS: INR 1.03 (0.9-1.15); Partial Thromboplastin Time 29.8 SEC (24.5-34.5); Prothrombin Time 10.9 sec (9.3-11.8)
[2025-01-10 05:00] VITALS: BP 133/80; PULSE 85; RESP 18; TEMP 97.8; O2SAT 96
[2025-01-10 06:41] LABS: Hematocrit 35.9 % (41.0-53.0); Hemoglobin 12.1 g/dL (13.5-17.5); Mean Corpuscular Hemoglobin 29.5 pg (28.0-32.0); Mean Corpuscular Volume 87.4 fL (80.0-100.0)
[2025-01-10 07:06] LABS: Alanine Aminotransferase 24 U/L (7-40); Albumin 3.9 g/dL (3.2-4.8); Alkaline Phosphatase 66 U/L (46-116); Anion Gap 13 (5-15); BUN/Creatinine Ratio 18.3 (10.0-20.0); Calcium 9.2 mg/dL (8.7-10.4); Carbon Dioxide 20 mmol/L (20-31); Chloride 104 mmol/L (98-107); Magnesium 2.5 mg/dL (1.6-2.6); Potassium 4.5 mmol/L (3.5-5.1); Sodium 137 mmol/L (136-145); Total Protein 6.8 g/dL (5.7-8.2)
[2025-01-10 07:08] LABS: Bilirubin, Total 0.3 mg/dL (0.2-1.0); Blood Urea Nitrogen 49 mg/dL (9-23); Glucose 161 mg/dL (74-106)
[2025-01-10 07:38] LABS: Total Cells Counted 100.0 (100)
[2025-01-10 08:30] VITALS: BP 136/81; PULSE 89; RESP 19; TEMP 98.1; O2SAT 96
--- NOTE | 2025-01-10 11:55 | DVH ---
PROCEDURE: Arthrocentesis Procedural Personnel Attending physician(s): Edwar Cruz Fellow physician(s): None Resident physician(s): None Advanced practice provider(s): None Pre-procedure diagnosis: Left ankle effusion Post-procedure diagnosis: Same Indication: Suspected infection Additional clinical history: None Complications: No immediate complications. IMPRESSION: Image-guided diagnostic left ankle arthrocentesis, yielding 1 mL of serosanguinous fluid following lavage. Plan: The patient tolerated the procedure well. PROCEDURE SUMMARY: - Left ankle arthrocentesis with ultrasound guidance - Additional procedure(s): None PROCEDURE DETAILS: Pre-procedure Consent: Informed consent for the procedure including risks, benefits and alternatives was obtained a nd time-out was performed prior to the procedure. Preparation: The site was prepared and draped using maximal sterile barrier technique including cutan eous antisepsis. Anesthesia/sedation Level of anesthesia/sedation: No sedation Anesthesia/sedation administered by: Not applicable Total intra-service sedation time (minutes): Not applicable. Arthrocentesis The patient was positioned supine . Local anesthesia was administered. Under image guidance, a needle was advanced into the joint space, with intra-articular position confirmed by direct visualization . Aspiration was performed. Needle: 18 gauge, 1.5 inch Fluid volume aspirated (ml): 1 cc following lavage Fluid appearance: serosanguinous Contrast administered: None Joint lavage: Yes Closure The needle was removed and hemostasis was achieved with manual compression. A sterile bandage was hamzah lied. Radiation Dose NA Additional Details Additional description of procedure: None Registry event: V /3 /g Device used: None Equipment details: None Unique Device Identifiers: Not available Specimens removed: None Estimated blood loss (mL): Less than 10 Standardized report: [email or web address] Attestation Signer name: Edwar Cruz I attest that I was present for the entire procedure . I reviewed the stored images and agree with th e report as written.
[2025-01-10] MEDS ORDERED: AUG875T PO (12:04)
[2025-01-10] MEDS ORDERED: COLC1CAP PO (12:04)
--- NOTE | 2025-01-10 12:45 | DVHDSRES ---
Discharge Summary Date of Admission Resident Creating Document: ALLISON GALLOWAY RESIDENT Jan 08, 2025 at 14:13 Date of Discharge: Jan 10, 2025 Admitting Diagnosis Suspected septic arthritis, rule out gouty arthritis/pseudogout Labs/Diagnostic Data: Laboratory Results Test 01/10/25 11:21 01/10/25 05:45 01/09/25 16:00 01/09/25 07:00 POC Glucose 197 mg/dl (70-106) White Blood Count 8.9 10^3/uL (4.4-10.8) Red Blood Count 4.11 10^6/uL (4.5-5.90) Hemoglobin 12.1 g/dL (13.5-17.5) Hematocrit 35.9 % (41.0-53.0) Mean Corpuscular Volume 87.4 fL (80.0-100.0) Mean Corpuscular Hemoglobin 29.5 pg (28.0-32.0) Mean Corpuscular Hemoglobin Concent 33.8 g/dL (32.0-36.0) Red Cell Distribution Width 14.2 % (11.8-14.3) Platelet Count 327 10^3/uL (140-450) Mean Platelet Volume 8.4 fL (6.9-10.8) Neutrophils (%) (Auto) % (37.0-80.0) Lymphocytes (%) (Auto) % (10.0-50.0) Monocytes (%) (Auto) % (0.0-12.0) Basophils (%) (Auto) % (0.0-2.0) Neutrophils # (Auto) 10 ^3/uL (1.6-8.6) Lymphocytes # (Auto) 10 ^3/uL (0.4-5.4) Monocytes # (Auto) 10 ^3/uL (0-1.3) Differential Total Cells Counted 100.0 (100) Neutrophils % (Manual) 86 (37.0-80.0) Band Neutrophils % (Manual) 3 Lymphocytes % (Manual) 7 (10.0-50.0) Monocytes % (Manual) 3 (0-12) Eosinophils % (Manual) 0 (0-7) Basophils % (Manual) 0 (0.0-2.0) Metamyelocytes % (manual) 0 Myelocytes % (Manual) 1 Promyelocytes % (Manual) 0 Blast Cells % (Manual) 0 Reactive Lymphocytes 0 Platelet Estimate Adequate Sodium Level 137 mmol/L (136-145) Potassium Level 4.5 mmol/L (3.5-5.1) Chloride Level 104 mmol/L (98-107) Carbon Dioxide Level 20 mmol/L (20-31) Anion Gap 13 (5-15) Blood Urea Nitrogen 49 mg/dL (9-23) Creatinine 2.68 mg/dL (0.700-1.30) Glomerular Filtration Rate Calc 25 mL/min (>90) BUN/Creatinine Ratio 18.3 (10.0-20.0) Serum Glucose 161 mg/dL (74-106) Calcium Level 9.2 mg/dL (8.7-10.4) Magnesium Level 2.5 mg/dL (1.6-2.6) Total Bilirubin 0.3 mg/dL (0.2-1.0) Aspartate Amino Transferase (AST) 23 U/L (13-40) Alanine Aminotransferase (ALT) 24 U/L (7-40) Alkaline Phosphatase 66 U/L (46-116) Total Protein 6.8 g/dL (5.7-8.2) Albumin 3.9 g/dL (3.2-4.8) Prothrombin Time 10.9 sec (9.3-11.8) Prothrombin Time INR 1.03 (0.9-1.15) Activated Partial Thromboplast Time 29.8 SEC (24.5-34.5) Red Blood Cell Morphology Normal Test 01/09/25 02:15 01/08/25 19:51 01/08/25 14:42 01/08/25 05:47 Urine Color Light-brown (Yellow) Urine Clarity Ex.turbid (Clear) Urine pH 6.0 (5.0-9.0) Urine Specific Depue 1.010 (1.001-1.035) Urine Protein 2+ (Negative) Urine Ketones Negative (Negative) Urine Blood 1+ /uL (Negative) Urine Nitrite Negative (Negative) Urine Bilirubin Negative (Negative) Urine Urobilinogen Normal mg/dL (Negative) Urine Leukocyte Esterase 3+ /uL (Negative) Urine RBC 19 /hpf (0 - 3) Urine WBC Clumps Present /hpf (None Seen) Urine Microscopic WBC 4254 /HPF (0-3) Urine Squamous Epithelial Cells None seen /hpf (<5) Urine Bacteria None seen /hpf (None Seen) Urine Glucose Normal mg/dL (Normal) Urine Opiates Screen Neg (NEGATIVE) Urine Fentanyl Screen Neg (NEGATIVE) Urine Barbiturates Screen Neg (NEGATIVE) Urine Phencyclidine Screen Neg (NEGATIVE) Urine Amphetamines Screen Neg (NEGATIVE) Urine Benzodiazepines Screen Neg (NEGATIVE) Urine Cocaine Screen Neg (NEGATIVE) Urine Cannabinoids Screen Neg (NEGATIVE) Hemoglobin A1c 6.4 % A1C (<5.7) Anti-Nuclear Antibody Screen Negative (Negative) Eosinophils (%) (Auto) 0.7 % (0.0-7.0) Eosinophils # (Auto) 0.1 10 ^3/uL (0-0.8) Basophils # (Auto) 0.1 10 ^3/uL (0-0.2) Nucleated Red Blood Cells 0.0 % Erythrocyte Sedimentation Rate 84 mm/hr (0-20) C-Reactive Protein High Sensitivity 12.95 mg/dL (<1.0) B-Type Natriuretic Peptide 14.99 pg/mL (0-100) Thyroid Stimulating Hormone (TSH) 1.34 uIU/mL (0.55-4.78) Test 01/08/25 05:42 01/08/25 04:57 Vitamin B12 Level 438 pg/mL (211-911) Vitamin D 25-Hydroxy 44.8 ng/mL (30.0-100) Folic Acid 37.52 ng/mL (>5.38) Uric Acid 8.9 mg/dL (3.7-9.2) Other Laboratory Tests 01/10/25 05:45 Brief Hx & Hospital Course: Patient is 69 years old male with past medical history of hypertension, diabetes mellitus type 2, hyperlipidemia, CKD, CVA, asthma, gout came with a complaint of bilateral ankle and left wrist pain for 2 weeks. As per patient pain started after he woke up from sleep 2 weeks before, 5/10, intermittent, sharp pain, aggravated with movement. Patient denied any dysuria, fever, diarrhea, chest pain or shortness of breath. Patient reported sexually not active. Initial lab workup revealed leukocytosis WBC 11.4, hemoglobin 12.8, neutrophil 82.7%, serum creatinine 3.11, BUN 45, GFR 21, BNP 149. X-ray left wrist- No fracture or dislocation. 1st CMC joint osteoarthritis. X-ray of the left ankle- There is no evidence of acute fracture or dislocation.Plantar and retrocalcaneal enthesopathy. Hospital course-during hospital course patient is treated with the IV antibiotic, blood culture negative. Patient had aspiration of synovial fluid from left ankle joint. Patient was seen by orthopedic surgeon. Urinalysis revealed UTI. Patient's pain improved with the conservative management. MRI of the left ankle without contrast revealed- Large joint effusion and synovitis in the left ankle. The appearance is fairly nonspecific and septic arthritis can have this appearance. Pending synovial fluid report. Patient is being discharged with Augmentin 875 mg p.o. b.i.d. for 10 days, colchicine 0.6 mg p.o. daily as prescribed. Patient was advised to follow up with the primary care physician with a report of synovial fluid analysis for further evaluation and care. Patient was hemodynamically stable on discharge. Patient's meds were sent to the pharmacy electronically. Assessment #suspected septic arthritis, #Acute gouty arthritis # DANG on CKD likely due to [facility] #SIRS #Tear of the anterior talofibular ligament. # Deltoid ligament sprain. #Fluid in the long medial flexor tendon and peroneal sheaths which may reflect tenosynovitis. # Peroneus brevis interstitial tear. # UTI # diabetes mellitus type 2 # hypertension # hyperlipidemia # Asthma, no acute exacerbation # history of CVA # osteoarthritis # obesity, Plan -Augmentin 875 mg p.o. b.i.d. for 10 days -continue colchicine 0.6 mg p.o. daily as prescribed -please resume home medications -please follow up with the primary care physician 1 week with a report of synovial fluid analysis. Please follow up with your borough coordinator in 1-2 weeks -avoid dehydration and nephrotoxic drugs -Tylenol [id number] PRN for pain Operations or Procedures [address] [address] Ph: [phone] DIAGNOSTIC IMAGING Diagnostic Imaging Report : [id number] Signed PATIENT: TIFFANIE YUNG ACCT: [id number] UNIT: [id number] : 1955 LOC: [facility] ROOM / BED: [facility] / A AGE / SEX: 69 / M ADM STATUS: ADM IN SERVICE 0000 ORDERING PHYSICIAN: ALLISON GALLOWAY RESIDENT PROCEDURE(s): THOUS - US GUIDANCE FOR NEEDLE PLACEME REASON: ANKLE ASPIRATION ORDER NUMBER(s): [id number], ACCESSION NUMBER(s): [id number] PROCEDURE: Arthrocentesis Procedural Personnel Attending physician(s): Yrn Dove Fellow physician(s): None Resident physician(s): None Advanced practice provider(s): None Pre-procedure diagnosis: Left ankle effusion Post-procedure diagnosis: Same Indication: Suspected infection Additional clinical history: None Complications: No immediate complications. IMPRESSION: Image-guided diagnostic left ankle arthrocentesis, yielding 1 mL of serosanguinous fluid following lavage. Plan: The patient tolerated the procedure well. PROCEDURE SUMMARY: - Left ankle arthrocentesis with ultrasound guidance - Additional procedure(s): None PROCEDURE DETAILS: Pre-procedure Consent: Informed consent for the procedure including risks, benefits and alternatives was obtained and time-out was performed prior to the procedure. Preparation: The site was prepared and draped using maximal sterile barrier technique including cutaneous antisepsis. Anesthesia/sedation Level of anesthesia/sedation: No sedation Anesthesia/sedation administered by: Not applicable Total intra-service sedation time (minutes): Not applicable. Arthrocentesis The patient was positioned supine . Local anesthesia was administered. Under image guidance, a needle was advanced into the joint space, with intra-articular position confirmed by direct visualization . Aspiration was performed. Needle: 18 gauge, 1.5 inch Fluid volume aspirated (ml): 1 cc following lavage Fluid appearance: serosanguinous Contrast administered: None Joint lavage: Yes Closure The needle was removed and hemostasis was achieved with manual compression. A sterile bandage was applied. Radiation Dose NA Additional Details Additional description of procedure: None Registry event: V /3 /g Device used: None Equipment details: None Unique Device Identifiers: Not available Specimens removed: None Estimated blood loss (mL): Less than 10 Standardized report: [email or web address] Attestation Signer name: Yrn Dove I attest that I was present for the entire procedure . I reviewed the stored images and agree with the report as written. ATED BY: YRN DOVE MD DICTATED DATE/TIME: 01/10/25 1152 SIGNED BY: YRN DOVE MD SIGNED DATE/TIME: 01/10/25 1152 CC: [place] [id number] Ph: [phone] DIAGNOSTIC IMAGING Diagnostic Imaging Report : [id number] Signed PATIENT: TIFFANIE YUNG ACCT: [id number] UNIT: [id number] : 1955 LOC: [facility] ROOM / BED: [facility] / A AGE / SEX: 69 / M ADM STATUS: ADM IN SERVICE 1453 ORDERING PHYSICIAN: ALLISON GALLOWAY RESIDENT PROCEDURE(s): LANMR - MRI L ANKLE WO CONTRAST REASON: Rule out septic arthritis/fracture ORDER NUMBER(s): [id number], ACCESSION NUMBER(s): [id number] CLINICAL INDICATION: Rule out septic arthritis/fracture COMPARISON: XY L ANKLE 3 VIEW on DOS: 01/08/25 TECHNIQUE: Multiplanar, multisequence MRI of the left ankle was performed without intravenous contrast. Contrast: None INTERPRETATION: Bones: No evidence of acute fracture. No evidence of marrow replacing lesion to suggest osteomyelitis or bone mass. Joints: There is a large ankle joint effusion. There is synovitis. Alignment: Unremarkable. Ligaments: The anterior talofibular ligament is torn. The posterior talofibular ligament is intact. The calcaneofibular ligament is intact. The inferior tibiofibular ligaments are intact. Deltoid ligament thickening and T2 hyperintensity reflecting sprain. Spring ligament is intact. Tendons:The Achilles tendon is intact. There is a tear of the peroneus brevis tendon. Peroneus longus is intact. The posterior tibialis, flexor hallucis longus and flexor digitorum longus tendons are intact. There is fluid in the posterior tibial and flexor hallucis longus tendon sheaths. Fluid also noted in the peroneal tendon sheaths. The dorsal extensor tendons are intact. Plantar Fascia: The medial cord of the plantar fascia is intact. Heel spur. Bursae: The retroachilles bursa is not fluid distended. The retrocalcaneal bursa is not fluid distended. Mass/Fluid: There is fluid in the sinus tarsi. Muscles: Intrinsic muscles of the foot are unremarkable. Other soft tissues: There is subcutaneous edema in the medial and lateral ankle. IMPRESSION: 1. Large joint effusion and synovitis in the left ankle. Mild subcutaneous edema. The appearance is fairly nonspecific and septic arthritis can have this appearance. Arthrocentesis may be considered if clinically warranted. 2. No MR evidence of osteomyelitis. 3. Medial and lateral subcutaneous edema. 4. Tear of the anterior talofibular ligament. Deltoid ligament sprain. 5. Fluid in the long medial flexor tendon and peroneal sheaths which may reflect tenosynovitis. 6. Peroneus brevis interstitial tear. ATED BY: CAROLEE WILSON MD DICTATED DATE/TIME: 01/09/25551 SIGNED BY: CAROLEE WILSON MD SIGNED DATE/TIME: 01/09/25551 CC: [place] [id number] Ph: [phone] DIAGNOSTIC IMAGING Diagnostic Imaging Report : [id number] Signed PATIENT: TIFFANIE YUNG ACCT: [id number] UNIT: [id number] : 1955 LOC: ER ROOM / BED: / AGE / SEX: 69 / M ADM STATUS: REG ER SERVICE 2 ORDERING PHYSICIAN: LUC GONZALEZ PROCEDURE(s): LANKL - L ANKLE 3 VIEW REASON: Swelling and pain ORDER NUMBER(s): [id number], ACCESSION NUMBER(s): [id number] CLINICAL INDICATION: Swelling and pain TECHNIQUE: XY L ANKLE 3 VIEW Comparison: None FINDINGS/IMPRESSION: : There is no evidence of acute fracture or dislocation. Plantar and retrocalcaneal enthesopathy. Soft tissues are unremarkable. ATED BY: TOPHER OLIVER MD DICTATED DATE/TIME: 01/08/25600 SIGNED BY: TOPHER OLIVER MD SIGNED DATE/TIME: 01/08/25600 CC: [place] [id number] Ph: [phone] DIAGNOSTIC IMAGING Diagnostic Imaging Report : [id number] Signed PATIENT: TIFFANIE YUNG ACCT: [id number] UNIT: [id number] : 1955 LOC: ER ROOM / BED: / AGE / SEX: 69 / M ADM STATUS: REG ER SERVICE 0523 ORDERING PHYSICIAN: LUC GONZALEZ PROCEDURE(s): LWRI - L WRIST 3+ VIEW XRAY REASON: Pain and swelling ORDER NUMBER(s): [id number], ACCESSION NUMBER(s): [id number] PROCEDURE: Left wrist radiographs. INDICATION: Pain and swelling TECHNIQUE: 3 views of the left wrist were obtained. COMPARISON: None FINDINGS: There is no evidence of fracture or dislocation. There is 1st carpometacarpal joint space narrowing. Joint spaces are otherwise maintained. IMPRESSION: 1. No fracture or dislocation. 2. 1st [facility] joint osteoarthritis. ATED BY: CAROLEE WILSON MD DICTATED DATE/TIME: 01/08/25600 SIGNED BY: CAROLEE WILSON MD SIGNED DATE/TIME: 01/08/25600 CC: [place] [address] Ph: [phone] DIAGNOSTIC IMAGING Diagnostic Imaging Report : [id number] Signed PATIENT: TIFFANIE YUNG ACCT: [id number] UNIT: [id number] : 1955 LOC: [facility] ROOM / BED: 1032-ER / A AGE / SEX: 69 / M ADM STATUS: ADM IN SERVICE 1424 ORDERING PHYSICIAN: ALLISON GALLOWAY PROCEDURE(s): CXR1 - CHEST XRAY 1 VIEW REASON: ?PNA ORDER NUMBER(s): [id number], ACCESSION NUMBER(s): [id number] CHEST RADIOGRAPH Indication: PNA Technique: Single frontal view of the chest was obtained Comparison: XY CHEST PORTABLE on DOS: 03/29/24 FINDINGS: Lines and Tubes: None Lungs: Obscuration of the left hemidiaphragm. Image rotation to the left.The right lung is clear. No pneumothorax. Cardiomediastinal contours: Borderline cardiomegaly Bones: No acute osseous abnormality. IMPRESSION: Obscuration of the left hemidiaphragm which may be from overlying cardiac silhouette with underlying pleural effusion/atelectasis / pneumonia not excluded. ATED BY: DOROTHY PLAZA DO DICTATED DATE/TIME: 01/08/251449 SIGNED BY: DOROTHY PLAZA DO SIGNED DATE/TIME: 01/08/251449 CC: Condition at Discharge: Stable Final Diagnosis/Problems List #suspected septic arthritis, #Acute gouty arthritis # DANG on CKD likely due to VM[facility] #SIRS #Tear of the anterior talofibular ligament. # Deltoid ligament sprain. #Fluid in the long medial flexor tendon and peroneal sheaths which may reflect tenosynovitis. # Peroneus brevis interstitial tear. # UTI # diabetes mellitus type 2 # hypertension # hyperlipidemia # Asthma, no acute exacerbation # history of CVA # osteoarthritis # obesity, Discharge Disposition: Home Discharge Instruct/Medications Diet: Cardiac 2g Na,low cholest, Renal Activity: No Restrictions, As Tolerated Follow Up/Referral: Please follow up with the primary care physician in 1 week Medications: Augmentin as prescribed Colchicine 0.6 mg p.o. daily as prescribed Scheduled Amoxicillin & Pot Clavulanate (Augmentin Tablet), 875 MG PO BID Aspirin (Aspirin), 81 MG PO DAILY Atorvastatin Calcium (Lipitor), 1 TAB PO DAILY Cholecalciferol (Vitamin D3), 1 TAB PO DAILY, (Reported) Clopidogrel Bisulfate (Plavix), 1 TAB PO DAILY Colchicine (Colchicine), 0.6 MG PO DAILY Colchicine (Colchicine), 0.6 MG PO DAILY Diltiazem Hcl (Diltiazem Hcl), 120 MG PO BID, (Reported) Dulaglutide (Trulicity), 1.5 MG SC QWEEKLY, (Reported) Dupilumab (Dupixent), 300 MG SC [id number], (Reported) Insulin Glargine (Lantus Solostar), 24 UNIT SC QAM, (Reported) Losartan Potassium (Losartan Potassium), 1 TAB PO DAILY Discontinued Medications Diltiazem Hcl (Diltiazem Hcl Er), 180 MG PO DAILY, (Reported) Discharge Statement: "Patient was advised to return to the ER or call 911 if any headaches, dizziness, shortness of breath, chest pain, abdominal pain, bleeding, fevers, or worsening of medical condition. Patient was counseled about treatment plan, medications, possible side effects, patientverbalized understanding. All questions were answered to the best of my ability. This discharge took greater then 30 minutes in planning, reviewing documentation, counseling the patient, and discussing with other team members." ASSESSMENT ASSESSMENT Assessment Septic arthritis Acute exacerbation of gout Date of Service: Jan 10, 2025 Billing Provider: SANDRA ALVAREZ MD Common Visit Codes: 61786-TJI/OBS DISCH DAY >30min ALLISON GALLOWAY Jan 10, 2025 12:45 SANDRA ALVAREZ MD Jan 14, 2025 02:00
[2025-01-10 13:10] VITALS: BP 136/81; PULSE 89; RESP 19; TEMP 98.1; O2SAT 96
== END 2025-01-10 13:47 | disposition home or self-care (01) | DRG 548 ==
LOC: ER 04:56 → OVERFLOW 14:13 → WEST WING 22:30
PROVIDERS: ADMIT Student in an Organized Health Care Education/Training Program; ATTEND Emergency Medicine
DX: M00.9 Pyogenic arthritis, unspecified (principal); N17.0 Acute kidney failure with tubular necrosis; L03.115 Cellulitis of right lower limb; R65.10 Systemic inflammatory response syndrome (SIRS) of non-infectious origin without acute organ dysfunction; L03.116 Cellulitis of left lower limb; N39.0 Urinary tract infection, site not specified; N18.9 Chronic kidney disease, unspecified; J45.909 Unspecified asthma, uncomplicated; E11.22 Type 2 diabetes mellitus with diabetic chronic kidney disease; Z68.32 Body mass index [BMI] 32.0-32.9, adult; E66.9 Obesity, unspecified; I12.9 Hypertensive chronic kidney disease with stage 1 through stage 4 chronic kidney disease, or unspecified chronic kidney disease; M77.8 Other enthesopathies, not elsewhere classified; M10.9 Gout, unspecified; E78.5 Hyperlipidemia, unspecified; M65.872 Other synovitis and tenosynovitis, left ankle and foot; S93.421A Sprain of deltoid ligament of right ankle, initial encounter; Z86.73 Personal history of transient ischemic attack (TIA), and cerebral infarction without residual deficits; Z79.899 Other long term (current) drug therapy; X58.XXXA Exposure to other specified factors, initial encounter; Y93.89 Activity, other specified; Y92.89 Other specified places as the place of occurrence of the external cause; Y99.8 Other external cause status
CPT/HCPCS: 36415; 71045; 73110; 73610; 73721; 76942; 80053; 80307; 81001; 82306; 82607; 82746; 82962; 83036; 83735; 83880; 84443; 84550; 85007; 85025; 85027; 85610; 85652; 85730; 86038; 86141; 87040; 87071; 87086; 87205; 96361; 96365; G0378; J1815; J3490